=== PATIENT | male | born 1960 | race Caucasian/White ===

== ENCOUNTER 2020-08-27 15:17 | Inpatient (IN) | payer MEDICARE, SELFPAY ==
[2020-08-27] VITALS (57 sets, daily range): BP systolic 73–171; BP diastolic 52–110; PULSE 56–99; RESP 10–42; TEMP 35.4–37.3; O2SAT 94–100
--- NOTE | ~2020-08-27 | CT_ITS ---
EXAMINATION: CT brain wo con DATE: 08/30/2020 02:44 INDICATION: Anoxic brain injury. TECHNIQUE: Computed tomography (CT) of the head was performed without intravenous contrast. The mA wa s adjusted according to patient size. Iterative reconstruction technique was employed. The dose-lengt h product was 681.00 mGy-cm. COMPARISON: Head CT 08/27/2020 FINDINGS: There is an old infarct in left cerebellum. There is an old infarct in right parietal lobe. There is diffuse hypoattenuation of the isabel matter. There is no intracranial hemorrhage or abnormal mass lesion. The ventricles are normal in size. There is mild mucosal thickening in the paranasal si nuses. There are likely changes of left ocular lens replacement surgery. The mastoid air cells are n ormal. IMPRESSION: 1. Diffuse hypoattenuation of the isabel matter, consistent with infarct. 2. 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 Reviewed, dictated and finalized at location A. DYER
--- NOTE | ~2020-08-27 | XR_ITS ---
XR abdomen NG/feed tube rechec INDICATION: Evaluate NG tube position. TECHNIQUE: Limited KUB perform for evaluating NG tube . COMPARISON: 08/27/2020 FINDINGS: NG tube tip in the distal esophagus near the GE junction. Visualized bowel gas pattern is u nremarkable. IMPRESSION: 1: NG tube tip in the distal esophagus near the GE junction. Recommend advancement. Reviewed, dictated and finalized at location B. EEPER IMPRESSION: 1: NG tube tip in the distal esophagus near the GE junction. Recommend advance ment.
--- NOTE | ~2020-08-27 | CT_ITS ---
EXAMINATION: CT brain wo con DATE: 08/27/2020 18:28 INDICATION: Postcardiac arrest. TECHNIQUE: Computed tomography (CT) of the head was performed without intravenous contrast. Sagittal and coronal reconstructions were performed. The mA was adjusted according to patient size. Iterative reconstruction technique was employed. The dose-length product was 605.33 mGy-cm. COMPARISON: None FINDINGS: Small region of encephalomalacia in the right parietal lobe consistent with old infarct. Additional s mall old infarct in the left cerebellar hemisphere. No acute intracranial hemorrhage, acute infarctio n or abnormal extra axial fluid collection. There is mild to moderate scattered white matter hypoatte nuation consistent with chronic small vessel ischemic disease. Ventricles are normal and symmetric. No mass/mass effect. Changes of bilateral intraocular lens replacement. Mucosal thickening in the vis ualized paranasal sinuses. Mastoid air cells and middle ear cavities are clear. Endotracheal tube and nasogastric tube are seen on the government services professional topogram. The nasogastric tube coils in the oral cavity befor e extending inferiorly into the pharynx. Intracranial calcified cerebral atherosclerosis is noted. IMPRESSION: 1. Old infarcts in the left cerebellar hemisphere and right parietal lobe. No acute intracranial proc ess. 2. Mild to moderate scattered white matter hypoattenuation consistent with chronic small vessel ische brianna disease. 3. A portion of the nasogastric tube coils in the oral cavity before extending caudally into the phar ynx and beyond the caudal margin of the [id number]. Reviewed, dictated and finalized at location A. WASHER GLUER IMPRESSION: 1. Old infarcts in the left cerebellar hemisphere and right parietal lobe. No a cute intracranial process. 2. Mild to moderate scattered white matter hypoattenuation consistent with aoc director combat plans officer suzette small vessel ischemic disease. 3. A portion of the nasogastric tube coils in the oral cavity before extending caudally into the pharynx and beyond the caudal margin of the [id number].
--- NOTE | ~2020-08-27 | XR_ITS ---
XR chest 1V portable DATE: 08/31/2020 06:10 INDICATION: Respiratory failure TECHNIQUE: Portable AP chest on August 31, 2020 at 0518 hours COMPARISON: August 30 2020 portable AP chest at 0504 hours FINDINGS: ET tube is 6.3 cm above omar; ideal range is 2-5 cm. NG tube in stomach. Right internal jugular central venous catheter tip overlying the superior vena cava. No pneumothorax. Cardiac megaly. Extensive thoracic aortic calcification. Status post sternotomy and probable coronary bypass graft surgery. Coronary artery stenting. There is infiltrate and/atelectasis in the left lower lobe. There is mild pulmonary vascular congesti on and redistribution and diffuse pulmonary interstitial prominence as well as mild prominence of the minor fissure, suggesting pulmonary interstitial and subpleural mild edema. No pleural effusion or p neumothorax is evident. Diffuse osteopenia. [place] devices overlie the right glenoid process of the scapula IMPRESSION: Cardiomegaly, mild congestive changes, probable pulmonary interstitial and subpleural adeola ma, relatively stable since August 30, 2020 Left lower lobe infiltrate and/atelectasis Reviewed, dictated and finalized at location A. ROOM GROWER IMPRESSION: Cardiomegaly, mild congestive changes, probable pulmonary interstit ial and subpleural edema, relatively stable since August 30, 2020 Left lower lobe infiltrate and/atelectasis
--- NOTE | ~2020-08-27 | XR_ITS ---
XR chest 1V portable DATE: 09/01/2020 06:21 INDICATION: Respiratory failure TECHNIQUE: Portable AP chest on September 01, 2020 at 0512 hours COMPARISON: August 31, 2020 portable AP chest at 0518 hours FINDINGS: ET tube tip 5.7 cm above omar. An NG tube is noted passing into the stomach. Right dental internship al jugular central venous catheter overlies superior vena cava. No pneumothorax. Cardiomegaly. Aortic calcification, ectasia. Mild was minor fissure suggesting subpleural edema. Pulm onary vascular redistribution may indicate mild pulmonary venous hypertension. No pleural effusion or pneumothorax. Mild left lower lobe infiltrate or atelectasis. No pulmonary consolidation is evident otherwise. IMPRESSION: No significant change since August 31, 2020 Reviewed, dictated and finalized at location A. MAN
--- NOTE | ~2020-08-27 | XR_ITS ---
XR chest ET placement 08/27/2020 16:03 Indication: Endotracheal tube placement. Respiratory distress. Procedure: AP portable chest Comparison: 11/29/2015 Findings: Endotracheal tube above the thoracic inlet, 12.6 cm above the omar. Cardiomegaly. No foca l air space disease, pulmonary edema, pleural effusion or suspected pneumothorax. Status post median sternotomy for CABG. Impression: 1: No acute cardiopulmonary disease. 2: Endotracheal tube above the thoracic inlet, 12.6 cm above the omar. Recommend advancement. Reviewed, dictated and finalized at location B. EMENT SERVICES REPRESENTATIVE Impression: 1: No acute cardiopulmonary disease. 2: Endotracheal tube above the thoracic inlet, 12.6 cm above the omar. Recom mend advancement.
--- NOTE | ~2020-08-27 | XR_ITS ---
EXAMINATION: XR chest port-a-cath/central DATE: 08/27/2020 20:16 INDICATION: Central line placement TECHNIQUE: frontal view of the chest was obtained. COMPARISON: Chest radiograph dated 08/27/2020 at 3:51 PM FINDINGS: New right internal jugular central venous catheter with distal tip in the midsuperior vena cava. The endotracheal tube remains positioned within the cervical esophagus approximately 13 cm above the ariella na. Nasogastric tube extends below the left hemidiaphragm with distal tip collimated off the study. New bandlike opacity left lower lung zone and increased opacity medial right lower lung zone. No pulm onary edema, pleural effusion or pneumothorax. Cardiomegaly. Median sternotomy wires, ostial markers and mediastinal surgical clips consistent with prior coronary artery bypass grafting. Suture anchors likely for prior labral repair along the anterosuperior right glenoid. IMPRESSION: 1. Lines and tubes as detailed above. Would recommend advancement of the endotracheal tube by 10 cm. Findings were discussed with Danielle Lozano, the nurse caring for the patient, at 8:30 PM. 2. New opacities in the bilateral lower lung zones which could represent atelectasis or less likely p neumonia. 3. Cardiomegaly. Reviewed, dictated and finalized at location A. VISITS NURSE IMPRESSION: 1. Lines and tubes as detailed above. Would recommend advancement of the endotr acheal tube by 10 cm. Findings were discussed with Danielle Lozano, the nurse car ing for the patient, at 8:30 PM. 2. New opacities in the bilateral lower lung zones which could represent atelec tasis or less likely pneumonia. 3. Cardiomegaly.
--- NOTE | ~2020-08-27 | XR_ITS ---
EXAMINATION: XR chest 1V portable DATE: 08/29/2020 05:38 INDICATION: Respiratory failure. TECHNIQUE: A single frontal view of the chest was obtained. COMPARISON: Chest single view 08/27/2020 FINDINGS: A waffle-pattern blanket overlies the patient. There are airspace opacities in right lower lung zone left mid and lower lung zones. No pleural effusion or pneumothorax. Cardiomegaly is noted. Median sternotomy wires and mediastinal surgical clips are seen, likely from prior coronary artery by pass grafting. The endotracheal tube tip is 5.5 cm above the omar. A right internal jugular central venous catheter is seen with tip in the superior vena cava. IMPRESSION: 1. Slightly worsened airspace opacities in right lower lung zone and left mid and lower lung zones, c onsistent with atelectasis versus pneumonia. 2. Cardiomegaly. Reviewed, dictated and finalized at location A. IER IMPRESSION: 1. Slightly worsened airspace opacities in right lower lung zone and left mid a nd lower lung zones, consistent with atelectasis versus pneumonia. 2. Cardiomegaly.
--- NOTE | ~2020-08-27 | XR_ITS ---
EXAMINATION: XR chest 1V portable DATE: 08/30/2020 05:50 INDICATION: Respiratory failure. TECHNIQUE: A single frontal view of the chest was obtained. COMPARISON: Chest single view 08/29/2020 FINDINGS: There is mild atelectasis at left lung base. There is a diffuse interstitial pattern in the lungs, consistent with mild pulmonary edema. No pleural effusion or pneumothorax. Cardiomegaly is no alin. Median sternotomy wires and mediastinal surgical clips are seen, likely from prior coronary kitty ry bypass grafting. A right internal jugular central venous catheter is seen with tip in the superior vena cava. The endotracheal tube tip is 5.9 cm above the omar. The nasogastric tube tip is beyond the inferior margin of the radiograph, but at least to the stomach. There are suture anchors in right glenoid. IMPRESSION: 1. Mild pulmonary edema. 2. Mild atelectasis at left lung base. 3. Cardiomegaly. Reviewed, dictated and finalized at location A. EY DRIVER
--- NOTE | ~2020-08-27 | XR_ITS ---
XR abdomen NG/feed tube insert INDICATION: Evaluate position. TECHNIQUE: Limited KUB perform for evaluating NG tube . COMPARISON: FINDINGS: NG tube coiled in the oropharynx. Visualized bowel gas pattern is unremarkable.Endotracheal tube is identified. There are extensive arterial calcifications in the upper abdomen. IMPRESSION: 1: NG tube coiled in the oropharynx. Reviewed, dictated and finalized at location B. ET AIRCRAFT CONTROLLER
--- NOTE | ~2020-08-27 | XR_ITS ---
EXAMINATION: XR abdomen NG/feed tube rechec DATE: 08/27/2020 20:54 INDICATION: Nasogastric tube placement recheck. TECHNIQUE: A supine view of the abdomen and lower chest was obtained for evaluation of feeding tube placement. COMPARISON: 08/27/2020 at 4:05 PM FINDINGS: Nasogastric tube has been advanced with distal tip in proximal side port in the body of the stomach. No dilated loops of gas-filled bowel to suggest obstruction. Left renal artery stent. Opacities at th e bilateral lung bases which could represent atelectasis and/or pneumonia. Cardiomegaly with change o f prior coronary artery stenting and coronary artery bypass grafting. IMPRESSION: 1. Nasogastric tube in the stomach. Reviewed, dictated and finalized at location A. TRICAL MAINTENANCE TECHNICIAN
--- NOTE | ~2020-08-27 | XR_ITS ---
EXAMINATION: XR chest ET placement DATE: 08/27/2020 20:54 INDICATION: Endotracheal tube repositioning. TECHNIQUE: frontal view of the chest was obtained. COMPARISON: Chest radiograph dated 08/27/2020 at 8:15 PM FINDINGS: Endotracheal tube has been advanced with distal tip now 4.6 cm above the omar. Right internal jugul ar central venous catheter with distal tip at the midsuperior vena cava. Nasogastric tube extends be low the left hemidiaphragm with distal tip collimated off the study. Improvement in bandlike opacity consistent with discoid atelectasis in the left lower lung zone. Pers istent airspace opacity in the right infrahilar region. No pleural effusion or pneumothorax. Cardiome kleber. Median sternotomy wires, ostial markers and mediastinal surgical clips consistent with prior co ronary artery bypass grafting. Change of prior right acetabular labral repair. Atherosclerotic thora cic aorta. IMPRESSION: 1. Lines and tubes in expected positions with endotracheal tube tip 4.6 cm above the omar. 2. Persistent consolidation in the right infrahilar region which could represent atelectasis and/or p neumonia. 3. Cardiomegaly. Reviewed, dictated and finalized at location A. MACHINE OFFBEARER IMPRESSION: 1. Lines and tubes in expected positions with endotracheal tube tip 4.6 cm abov e the omar. 2. Persistent consolidation in the right infrahilar region which could represen t atelectasis and/or pneumonia. 3. Cardiomegaly.
[2020-08-27] MEDS: SODIUM CHLORIDE 0.9% IV 1,000 ML 999 ML IV CONT ×2 (15:20→21:57)
--- NOTE | 2020-08-27 15:21 | ECG_ITS ---
Measurements Intervals [place] Rate: 87 P: -30 NC: 166 QRS: 122 QRSD: 210 T: 0 QT: 440 QTc: 530 Interpretive Statements ATRIAL FLUTTER/TACHYCARDIA RIGHT AXIS DEVIATION RIGHT BUNDLE BRANCH BLOCK ST-T WAVE ABNORMALITY IN ANTEROLATERAL LEADS- CONSIDER ISCHEMIA BASELINE WANDER- I, II, AVR, AVF, V1-V6 ABNORMAL ECG Electronically Signed On 08-28-2020 7:18:52 WEED SPRAYER by Steve Chowdhury D.O.
--- NOTE | 2020-08-27 15:22 | PC.NURSE ---
Having intermittent runs of vtach, pulses present.
[2020-08-27] MEDS: AMIODARONE 360 MG/D5W 200 ML 360 MG/200 ML BAG 33.33 MG IVPB ×2 (15:38→22:05)
--- NOTE | 2020-08-27 15:38 | PC.NURSE ---
Amiodarone drip started at 1 mg/min/ 33.3 ml/hr.
[2020-08-27 15:55] LABS: Basophils Percent Auto 0.4 % (0.2-1.2); Eosinophils Absolute Auto 0.2 K/mm3 (0-0.3); Eosinophils Percent Auto 2.2 % (0-4.4); Hematocrit 26.7 % (42.0-52.0); Immature Granulocyte Absolute 0.09 K/mm3 (0.00-0.031); Immature Granulocyte Percent A 1.2 % (0-0.5); Lymphocytes Absolute Auto 0.77 K/mm3 (0.9-3.2); Lymphocytes Percent Auto 10.5 % (18.3-44.2); Mean Corpuscular Hemoglobin 27.7 pg (26-34); Mean Corpuscular Volume 92.4 fl (80-100); Monocytes Absolute Auto 0.4 K/mm3 (0.1-0.6); Monocytes Percent Auto 5.9 % (2.6-8.5); Neutrophils Absolute Auto 5.9 K/mm3 (1.3-6.7); Neutrophils Percent Auto 79.8 % (45.5-73.1); Platelet Count Result 223 k/mm3 (150-375); Red Blood Count 2.89 M/mm3 (4.6-6.20); White Blood Count 7.3 K/mm3 (4.5-10.0)
--- NOTE | 2020-08-27 15:59 | PC.NURSE ---
Epinephrine drip started at 1mcg/ 15 ml/hr.
--- NOTE | 2020-08-27 16:01 | PC.NURSE ---
# 18 malay NG tube placed to right nare. Placement verified by auscultation and xray.
[2020-08-27 16:03] LABS: Add Urine Microscopic? YES; Appearance Urine Cloudy (Clear); Bacteria Urine Trace /hpf; Bilirubin Urine Negative (Negative); Blood Urine Negative (Negative); Color Urine Yellow (Yellow); Glucose Urine UA 2+ mg/dL (Negative); Ketones Urine Negative (Negative); Leukocyte Esterase Ur Negative LEU/UL (Negative); Mucus Urine Rare /lpf; Nitrate Urine Negative (Negative); Protein Urine 3+ mg/dL (Negative); Specific Grav Ur 1.011 (1.001-1.035); Squamous Epithelial Cell Urine Rare /hpf (Few); Urobilinogen Urine Negative mg/dL (<2.0); WBC Urine 0-3 /hpf
[2020-08-27 16:04] LABS: Alveolar/Arterial O2 Gradient 107.7 mmHg; Base Excess ABG -2.8 mEq/l (+/-2.0); Fractional Inspired Oxygen 100 %; HCO3 ABG 21.3 mEq/l (22.0-26.0); Oxygen Content ABG 15.2 %vol (16.0-22.0); Oxygen Saturation ABG 99.9 % (95.0-100.0); Oxyhemoglobin 98.4 % THb (90.0-100.0); PCO2 ABG 34.2 mmHg (35.0-45.0); PO2 ABG 571.1 mmHg (80.0-100.0); PO2 FiO2 Ratio Arterial Blood 5.71 %; Total Hemoglobin 9.8 g/dL (12.0-18.0); pH ABG 7.412 (7.350-7.450)
[2020-08-27 16:05] LABS: Arterial Blood Gas PEEP 5 cmH2O; Arterial Blood Gas Tidal Volume 350 ml; Arterial Blood Gas Vent Mode ASSIST CONTROL; Arterial Blood Gas Ventilator rate 15 /MIN; Device VENTILATOR; Modified Allen's Test Pass; Site Drawn RIGHT RADIAL
[2020-08-27 16:09] LABS: INR 1.5; Prothrombin Time 18.6 Seconds (11.1-14.7)
[2020-08-27 16:10] LABS: Partial Thromboplastin Time 41.5 SECONDS (22.3-36.8)
[2020-08-27 16:11] LABS: Alanine Aminotransferase 25 U/L (4-50); Albumin Level 2.4 g/dL (3.5-5.1); Alkaline Phosphatase 41 U/L (38-126); Anion Gap 12 mmol/L (8-16); Aspartate Amino Transferase 46 U/L (17-59); Bilirubin,Total 0.4 mg/dL (0.2-1.3); Blood Urea Nitrogen 13 mg/dL (9-20); Carbon Dioxide 21 mmol/L (22-30); Chloride 108 mmol/L (98-107); Estimated Glomerular Filt Rate 20; Glucose 176 mg/dL (75-110); Lactic Acid Reflex 6.4 mmol/L (0.7-2.1); Magnesium 2.6 mg/dL (1.6-2.3); Sodium 141 mmol/L (137-145)
[2020-08-27 16:18] LABS: Potassium 2.8 mmol/L (3.4-5.0)
[2020-08-27] MEDS: EPINEPHrine INJ 1 MG in DEXTROSE 5% IN WATER 250 ML 75.3 MG IV CONT (16:22)
[2020-08-27 16:28] LABS: NT Pro B Type Natriuretic Pept 33800 PG/ML (5-100); Troponin I 0.146 ng/mL (0.000-0.034)
[2020-08-27] MEDS: KCL 20 MEQ/SW 100 ML 100 ML 50 MEQ IVPB (16:30)
--- NOTE | 2020-08-27 16:54 | PC.NURSE ---
Diprivan drip started at 20 mcg. Pt having twitching movements and coughing against ETT.
--- NOTE | 2020-08-27 17:00 | PM.IMHP ---
H&P: HPI History of Present Illness Date/Time: 08/27/20 17:00. The patient was seen and evaluated in the emergency department. Chief Complaint: Cardiac arrest. Narrative: This is a 59-year-old male with end-stage renal disease on hemodialysis, coronary artery disease, hypertension, COPD, and chronic respiratory failure who presented to the emergency department earlier today via EMS in cardiac arrest. A majority of the following history is obtained via a review of his electronic medical records. His is present hospital owns a bedside however she is not a good historian as he does not really talk to her about his medical problems and they have not been for very long. Over the last week or so he has been telling his that his ?lungs hurt? after dialysis however he refused to have that evaluated. Apparently he has also had a cough although that is not unusual for him, as well as chills, nausea, occasional vomiting, and some loose stools. In any event he was at dialysis today and on his way back to his rehab facility (he was hospitalized at [facility] within the last couple of weeks for unknown reasons) he became unresponsive in the [facility]. On EMS arrival he was unresponsive, not breathing, and in ventricular fibrillation. CPR was initiated and he was shocked and found to be in asystole. After several rounds of CPR he had return of spontaneous circulation. He subsequently went back into ventricular fibrillation on several occasions in the emergency department but has since stabilized on amiodarone. EKG demonstrates a wide complex QRS with a prolonged QTC at 530. He remained unresponsive with no purposeful movement however has been started on propofol due to ongoing seizure activity. Review of Systems Review of Systems: Narrative: Unable to be obtained given current clinical condition as detailed above. [facility] Past Medical History Medical History (Updated 08/27/20 @ 23:18 by Tali Huffman PA-C) Asthma Bipolar disorder Chronic obstructive pulmonary disease Chronic respiratory failure Coronary artery disease End-stage renal disease on hemodialysis History of kidney stones Hyperlipidemia Hypertension Seizure Type 2 diabetes mellitus Documented in his chart however I do not see he is on any medication for such. Surgical History Surgical History (Updated 08/27/20 @ 23:10 by Tail Huffman PA-C) History of coronary artery bypass graft (~2010) History of hernia repair History of shoulder surgery Family History Family History Other Cerebrovascular accident Heart disease Social History Social History (Updated 08/27/20 @ 23:12 by Tali Huffman PA-C) Social History: Surrogate decision maker: Marion Bernard, . Code status: Full code Years smoked: 35 Smoking status: Former smoker Tobacco type: cigarettes Alcohol intake: former Substance use: never Additional living arrangements comments: Lives with his in [place]. He had 2 children, 1 son from suicide. Daughter is still living but I do not think they talk very much. Additional occupation/education comments: Unemployed. Spiritual care concerns: No Meds Home Medications and Allergies Home Medications Medication Instructions Recorded Confirmed Type albuterol sulfate 2 puff INHALATION Q4H PRN 08/27/20 08/27/20 History aspirin 81 mg PO DAILY 08/27/20 08/27/20 History carvedilol 25 mg PO DAILY 08/27/20 08/27/20 History clopidogrel 75 mg PO DAILY 08/27/20 08/27/20 History diphenhydramine HCl 12.5 mg PO HS PRN 08/27/20 08/27/20 History docusate sodium 100 mg PO BID PRN 08/27/20 08/27/20 History fluticasone furoate-vilanterol 1 inh INHALATION DAILY 08/27/20 08/27/20 History hydralazine 50 mg PO TID 08/27/20 08/27/20 History isosorbide mononitrate 60 mg PO DAILY 08/27/20 08/27/20 History losartan 50 mg PO DAILY 08/27/20 08/27/20 His
--- NOTE | 2020-08-27 17:05 | PC.NURSE ---
Diprivan increased to 30 mcg.
--- NOTE | 2020-08-27 17:32 | PC.NURSE ---
Diprivan drip started per ERP orders.
--- NOTE | 2020-08-27 17:46 | ED.GENADULT ---
HPI - General Adult General Chief complaint: Cardiac Arrest/CPR <Ben June MD - Last Filed: 08/27/20 20:57> Stated complaint: cardiac arrest <Ben June MD - Last Filed: 08/27/20 20:57> Limitations: altered mental status and clinical condition <Ben June MD - Last Filed: 08/27/20 20:57> History of Present Illness HPI narrative: Patient is 59-year-old gentleman who presents the emergency department with chief complaint of cardiac arrest. Patient was being transported [facility] dialysis [facility] and became unresponsive in the vehicle. EMS found the patient to be in ventricular tachycardia and ventricular fibrillation he was cardioverted in the field initially had a brief return of spontaneous circulation and then had return of cardiac arrest. Patient had several episodes of cardiac arrest and now <Ben June MD - Last Filed: 08/27/20 20:57> Related Data Home medications: Home Medications Medication Instructions Recorded Confirmed albuterol sulfate 2 puff INHALATION Q4H PRN 08/27/20 08/27/20 aspirin 81 mg PO DAILY 08/27/20 08/27/20 carvedilol 25 mg PO DAILY 08/27/20 08/27/20 clopidogrel 75 mg PO DAILY 08/27/20 08/27/20 hydralazine 50 mg PO TID 08/27/20 08/27/20 losartan 50 mg PO DAILY 08/27/20 08/27/20 nitroglycerin 0.4 mg SUBLINGUAL Q5M PRN 08/27/20 08/27/20 ranolazine 1,000 mg PO BID 08/27/20 08/27/20 sertraline 50 mg PO DAILY 08/27/20 08/27/20 <Ben June MD - Last Filed: 08/27/20 20:57> Allergies/adverse reactions: Allergies Allergy/AdvReac Type Severity Reaction Status Date / Time Unable to Assess Allergy Verified 08/27/20 17:01 <Ben June MD - Last Filed: 08/27/20 20:57> Review of Systems Review of Systems: Narrative: Unable to obtain due to altered mental status and patient condition <Ben June MD - Last Filed: 08/27/20 20:57> [facility] Social History Social History: Social History Years smoked: 35 Smoking status: Former smoker Tobacco type: cigarettes Alcohol intake: former Substance use: never Spiritual care concerns: No <Ben June MD - Last Filed: 08/27/20 20:57> Comments Patient has history of end-stage renal on dialysis history of cardiac disease. History is limited due to acuity <Ben June MD - Last Filed: 08/27/20 20:57> Exam Narrative: Exam Narrative: GENERAL: Ill-appearing unresponsive HEAD: Normocephalic, atraumatic. EYES: Left pupil is 5 mm and unreactive right pupil is 5 mm with a cataract present. ENT: Nares clear, no rhinorrhea or epistaxis. Mucous membranes moist. NECK: Supple. CHEST: Clear to auscultation. No respiratory distress. HEART: Regular rate and rhythm. No murmur heard. Normal peripheral pulses. ABDOMEN: Soft, nontender, nondistended, normal active bowel sounds. EXTREMITIES: Normal range of motion. No edema. SKIN: Warm, dry, no rash. NEURO: Unresponsive PSYCH: Unresponsive <Ben June MD - Last Filed: 08/27/20 20:57> Course Vital Signs Vital signs: Vital Signs Pulse Rate 88 08/27/20 15:21 Pulse Rate 89 08/27/20 20:21 Respiratory Rate 32 H 08/27/20 20:21 Blood Pressure 120/87 08/27/20 20:21 Pulse Oximetry 99 08/27/20 20:21 <Ben June MD - Last Filed: 08/27/20 20:57> Vital Signs Pulse Rate 88 08/27/20 15:21 Pulse Rate 89 08/27/20 20:21 Respiratory Rate 32 H 08/27/20 20:21 Blood Pressure 120/87 08/27/20 20:21 Pulse Oximetry 99 08/27/20 20:21 <Peri Alejandro MD - Last Filed: 08/27/20 20:11> Procedures Central Line Placement Right IJ: Central Line Date: 08/27/20 <Peri Alejandro MD - Last Filed: 08/27/20 20:11> Central Line Time: 20:05 <Peri Alejandro MD - Last Filed: 08/27/20 20:11> Performed Emergently - Given emergent patient condition, te
--- NOTE | 2020-08-27 18:09 | PC.NURSE ---
Ativan 1mg given IVP for twitching. Suctioned with yankeur, no gag reflex noted.
[2020-08-27] MEDS: LORazepam INJ (*CRX) 2 MG/ML VIAL 1 MG IV PUSH (18:17)
--- NOTE | 2020-08-27 18:30 | PC.NURSE ---
Continues to having twitching movements.
[2020-08-27 18:52] LABS: Reflex Lactic Acid Yes or No Add Lactic
--- NOTE | 2020-08-27 19:26 | PC.NURSE ---
Per GARFIELD June, discontinue epi drip.
--- NOTE | 2020-08-27 19:42 | PC.NURSE ---
Addendum entered by Rip Crook RN 08/27/20 21:16: Propofol started at 20mcg. Original Note: Per EDP Lipsmeyer via verbal order read-back, continue Propofol drip.
--- NOTE | 2020-08-27 19:50 | PC.NURSE ---
EDP Javon and Slade in room attempting central line placement. Patient moving during placement. Per EDP Javon via verbal order read-back, give 100mg succinylcholine IVP.
--- NOTE | 2020-08-27 20:40 | PC.NURSE ---
EDP Lipsyer in room for re-intubation. Unable to obtain seal on ETT tube, new ETT placed. size 7.5, 25 at the teeth, symmetrical chest rise and fall, good end tidal CO2 color change. Breath sounds equal bilaterally.
[2020-08-27] MEDS: EPINEPHrine INJ 1 MG in DEXTROSE 5% IN WATER 250 ML 15 MG IV CONT (20:46)
--- NOTE | 2020-08-27 20:47 | PC.NURSE ---
Per GARFIELD June, restart epi drip at 15mls/hr.
[2020-08-27 21:33] LABS: Hematocrit 30.2 % (42.0-52.0); Hemoglobin 9.3 g/dL (14.0-18.0); Mean Corpuscular HGB Conc 30.8 g/dl (32-36); Mean Corpuscular Hemoglobin 27.6 pg (26-34); Mean Corpuscular Volume 89.6 fl (80-100); Mean Platelet Volume 9.6 fl (7.4-10.4); Platelet Count Result 327 k/mm3 (150-375); Red Blood Count 3.37 M/mm3 (4.6-6.20); Red Cell Distribution Width 16.5 % (11.5-14.5); White Blood Count 17.8 K/mm3 (4.5-10.0)
[2020-08-27 21:43] LABS: INR 1.4; Prothrombin Time 17.8 Seconds (11.1-14.7)
[2020-08-27 21:44] LABS: Partial Thromboplastin Time 41.2 SECONDS (22.3-36.8)
[2020-08-27 21:51] LABS: Anion Gap 12 mmol/L (8-16); Blood Urea Nitrogen 27 mg/dL (9-20); Calcium 9.9 mg/dL (8.4-10.2); Carbon Dioxide 25 mmol/L (22-30); Chloride 100 mmol/L (98-107); Creatine Kinase 346 U/L (55-170); Estimated CRCL calculation 14 ml/min; Estimated Glomerular Filt Rate 11; Glucose 124 mg/dL (75-110); Magnesium 2.7 mg/dL (1.6-2.3); Potassium 6.6 mmol/L (3.4-5.0); Sodium 137 mmol/L (137-145)
[2020-08-27 21:58] LABS: Alveolar/Arterial O2 Gradient 411.5 mmHg; Base Excess ABG 1.3 mEq/l (+/-2.0); Carboxyhemoglobin 0.2 % THb (0-2.0); Fractional Inspired Oxygen 100 %; HCO3 ABG 25.1 mEq/l (22.0-26.0); Methemoglobin ABG 0.3 %THb (0-1.5); Oxygen Content ABG 14.9 %vol (16.0-22.0); Oxygen Saturation ABG 99.6 % (95.0-100.0); Oxyhemoglobin 98.6 % THb (90.0-100.0); PCO2 ABG 36.3 mmHg (35.0-45.0); PO2 ABG 253.3 mmHg (80.0-100.0); PO2 FiO2 Ratio Arterial Blood 2.53 %; Reduced Hemoglobin 0.9 %THb (0-5.0); Total Hemoglobin 10.3 g/dL (12.0-18.0); pH ABG 7.457 (7.350-7.450)
[2020-08-27 21:59] LABS: Arterial Blood Gas PEEP 5 cmH2O; Arterial Blood Gas Tidal Volume 350 ml; Arterial Blood Gas Vent Mode CMV; Arterial Blood Gas Ventilator rate 15 /MIN; Device VENTILATOR; Modified Allen's Test Unable to perform; Site Drawn RIGHT RADIAL
--- NOTE | 2020-08-27 22:02 | ECG_ITS ---
Measurements Intervals [place] Rate: 48 P: VA: 0 QRS: 103 QRSD: 204 T: 177 QT: 607 QTc: 545 Interpretive Statements SINUS RHYTHM WUTH FIRST DEGREE AV BLOCK VENTRICULAR PREMATURE COMPLEX RIGHT AXIS DEVIATION RIGHT BUNDLE BRANCH BLOCK PROLONGED QT INTERVAL BASELINE ARTIFACT- I, II, III, AVR, AVL, AVF, V1-V6 ABNORMAL ECG Electronically Signed On 08-28-2020 7:14:55 SENIOR ENERGY TRADER by Steve Chowdhury D.O.
[2020-08-27] MEDS: EPINEPHrine INJ 1 MG in DEXTROSE 5% IN WATER 250 ML 15.06 MG IV CONT (22:12)
[2020-08-27] MEDS: NOREPINEPHRINE 8 MG/D5W 250 ML 8 MG/250 ML BAG 9.38 MG IV CONT (22:13)
[2020-08-27 22:19] LABS: Glucose Point of Care 92 (65-105)
[2020-08-27] MEDS: PROPOFOL IV EMULSION 100 ML 2.12 MG IV CONT (22:46)
[2020-08-27] MEDS: SODIUM POLYSTYRENE SULFONONATE 15 GM/60 ML BTL 30 GM FEED TUBE (22:46)
[2020-08-27] MEDS: INSULIN HUMAN REGULAR (*BKC) 100 UNITS/ML 10 UNITS IV PUSH (23:05)
[2020-08-27] MEDS: levETIRAcetam 500MG/NACL 100ML 500 MG/100 ML BAG 400 MG IVPB (23:07)
[2020-08-27] MEDS: DEXTROSE 50% 25 GM/50 ML SYRINGE IV PUSH (23:14)
[2020-08-27] MEDS: CALCIUM GLUCONATE 1,000 MG/10 ML VIAL 1000 MG IV PUSH (23:15)
[2020-08-27] MEDS: SODIUM CHLORIDE 0.9% IV 1,000 ML 200 ML IV CONT (23:16)
[2020-08-27] MEDS: CENTRAL LINE FLUSH 10 ML IV PUSH (23:17)
--- NOTE | 2020-08-27 23:34 | PCRCNOTE ---
ETT EXCHANGED DUE TO AIR LEAK AND LOW TIDAL VOLUMES. REPLACED WITH 7.5 ETT, 25@LIP. PT THEN TRANSPORTED TO ICU 3 FROM ED 8 VIA VENTILATOR WITH NO ADVERSE EVENTS NOTED.
[2020-08-28] VITALS (47 sets, daily range): BP systolic 99–175; BP diastolic 53–99; PULSE 42–63; RESP 15–29; TEMP 32.2–35.8; O2SAT 100; BMI 23.6
[2020-08-28] LABS: Glucose Point of Care 235 (65-105)
[2020-08-28] MEDS: INSULIN ASPART (*BKC) 100 UNITS/ML SUB-Q
--- NOTE | 2020-08-28 | ECHO_ITS ---
Patient Info Name: Adin Bernard Age: 59 years : 1960 Gender: Male Ht: 69 in Wt: 160 lbs BSA: 1.88 m2 HR: 50 bpm BP: 150 / 84 mmHg Heart Rhythm: Bradycardia, Indeterminant Technical Quality: Good Exam Date: 08/28/2020 10:01 AM Exam Location: [facility] Patient Status: Inpatient Admit Date: 08/27/2020 Staff Ordering Physician: Ben June MD Knitter Operator: Dar Adams RDCS Attending Provider: Fabian Booth MD Referring Physician: Slade CARBAJAL; Exam Type: CA echo doppler color flow Study Info Indications I46.9 - Cardiac arrest, cause unspecified Complete two-dimensional, color flow and Doppler transthoracic echocardiogram is performed. Strain analysis performed. History/Risk Factors Vfib arrest; ARF, ESRD, CAD w/ CABG, HTN, COPD. Summary 1. Complete two-dimensional, color flow and Doppler transthoracic echocardiogram is performed. 2. The left ventricle is mildly enlarged with moderate concentric hypertrophy. There is severe global left ventricular dysfunction, with also akinesis of the mid inferior septal and inferolateral correa. The calculated ejection fraction is 30 3% and visually it is 25-30%. Diastolic function is indeterminate. Global longitudinal strain is also severely reduced at 7% consistent with severe left ventricular dysfunction. 3. Right ventricular chamber dimension is mildly enlarged with mild hypokinesis. 4. Left atrial chamber dimension is moderately enlarged. 5. There is mild aortic valve calcification. There is a suggestion of short thin fibrinous mobile masses associated with the valve which gives the appearance of benign Lambl's excrescences, although vegetations and artifact cannot be excluded. 6. There is mild mitral valve regurgitation. 7. There is mild tricuspid valve regurgitation. 8. Mild pulmonary hypertension, estimated pulmonary arterial systolic pressure is 40 mmHg. 9. Mildly dilated aortic root. Left Ventricle Left ventricular chamber dimension is mildly enlarged. Left ventricular systolic function is normal, estimated at 25-30%. There is moderately increased left ventricular wall thickness. Left ventricular septal wall motion is normal. The left ventricular diastolic function is indeterminate. Global longitudinal strain is severely elevated at 7 %. The left ventricle is mildly enlarged with moderate concentric hypertrophy. There is severe global left ventricular dysfunction, with also akinesis of the mid inferior septal and inferolateral correa. The calculated ejection fraction is 30 3% and visually it is 25-30%. Diastolic function is indeterminate. Global longitudinal strain is also severely reduced at 7% consistent with severe left ventricular dysfunction. Right Ventricle Right ventricular chamber dimension is mildly enlarged with mild hypokinesis. Right ventricular systolic function is normal. Left Atria Left atrial chamber dimension is moderately enlarged. Right Atria Right atrial chamber dimension is normal. Aortic Valve The aortic valve is trileaflet. There is no aortic valve sclerosis. There is no aortic valve stenosis. There is no aortic valve regurgitation. There is mild aortic valve calcification. There is a suggestion of short thin fibrinous mobile masses associated with the valve which gives the appearance of benign Lambl's excrescences, although vegetations and artifact cannot be excluded. Pulmonic Valve The pulmonic valve is normal. There is no pulmonic valve stenosis. There is
[2020-08-28 01:37] LABS: Alveolar/Arterial O2 Gradient 250.5 mmHg; Base Excess ABG -0.8 mEq/l (+/-2.0); Carboxyhemoglobin 0.2 % THb (0-2.0); Device VENTILATOR; Fractional Inspired Oxygen 60 %; HCO3 ABG 24.6 mEq/l (22.0-26.0); Methemoglobin ABG 0.3 %THb (0-1.5); Modified Allen's Test Unable to perform; Oxyhemoglobin 97.7 % THb (90.0-100.0); PCO2 ABG 43.6 mmHg (35.0-45.0); PO2 ABG 158.6 mmHg (80.0-100.0); PO2 FiO2 Ratio Arterial Blood 2.64 %; Reduced Hemoglobin 1.8 %THb (0-5.0); Site Drawn RIGHT RADIAL; Total Hemoglobin 9.2 g/dL (12.0-18.0); pH ABG 7.369 (7.350-7.450)
[2020-08-28 01:38] LABS: Arterial Blood Gas PEEP 5 cmH2O; Arterial Blood Gas Tidal Volume 350 ml; Arterial Blood Gas Vent Mode CMV; Arterial Blood Gas Ventilator rate 15 /MIN
[2020-08-28 02:43] LABS: Creatine Kinase 468 U/L (55-170)
[2020-08-28 02:46] LABS: Lactic Acid Reflex 5.1 mmol/L (0.7-2.1)
[2020-08-28] MEDS: SODIUM CHLORIDE 0.9% IV 1,000 ML 200 ML IV CONT (05:00)
[2020-08-28 05:06] LABS: Alanine Aminotransferase 273 U/L (4-50); Albumin Level 2.9 g/dL (3.5-5.1); Alkaline Phosphatase 94 U/L (38-126); Anion Gap 6 mmol/L (8-16); Aspartate Amino Transferase 469 U/L (17-59); Bilirubin,Total 0.8 mg/dL (0.2-1.3); Blood Urea Nitrogen 33 mg/dL (9-20); CRP 3.9 mg/dL (<1.0); Calcium 9.7 mg/dL (8.4-10.2); Carbon Dioxide 30 mmol/L (22-30); Chloride 104 mmol/L (98-107); Estimated CRCL calculation 14 ml/min; Estimated Glomerular Filt Rate 12; Glucose 86 mg/dL (75-110); Magnesium 2.6 mg/dL (1.6-2.3); Phosphorus 5.4 mg/dL (2.5-4.5); Potassium 3.9 mmol/L (3.4-5.0); Sodium 140 mmol/L (137-145)
[2020-08-28 05:19] LABS: Alveolar/Arterial O2 Gradient 160.9 mmHg; Carboxyhemoglobin 0.5 % THb (0-2.0); Fractional Inspired Oxygen 50 %; HCO3 ABG 26.7 mEq/l (22.0-26.0); Methemoglobin ABG 0.3 %THb (0-1.5); Oxygen Content ABG 12.7 %vol (16.0-22.0); Oxygen Saturation ABG 99.3 % (95.0-100.0); Oxyhemoglobin 97.7 % THb (90.0-100.0); PCO2 ABG 42.5 mmHg (35.0-45.0); PO2 ABG 181.3 mmHg (80.0-100.0); PO2 FiO2 Ratio Arterial Blood 3.63 %; Reduced Hemoglobin 1.5 %THb (0-5.0); Total Hemoglobin 8.9 g/dL (12.0-18.0); pH ABG 7.416 (7.350-7.450)
[2020-08-28 05:27] LABS: Device VENTILATOR; Modified Allen's Test Unable to perform; Site Drawn RIGHT RADIAL
[2020-08-28 05:28] LABS: Arterial Blood Gas PEEP 5 cmH2O; Arterial Blood Gas Tidal Volume 350 ml; Arterial Blood Gas Vent Mode CMV; Arterial Blood Gas Ventilator rate 15 /MIN
[2020-08-28 06:14] LABS: Amphetamine Screen Urine Negative (Negative); Barbiturate Screen Urine Negative (Negative); Benzodiazepines Screen Urine Negative (Negative); Cannabinoid Screen Urine Negative (Negative); Cocaine Screen Urine Negative (Negative); Methadone Screen Urine Negative (Negative); Opiate Screen Urine Negative (Negative); Phencyclidine Screen Urine Negative (Negative)
[2020-08-28] MEDS: CENTRAL LINE FLUSH 10 ML IV PUSH ×3 (06:16→21:59)
[2020-08-28 07:05] LABS: Hematocrit 26.6 % (42.0-52.0); Hemoglobin 8.3 g/dL (14.0-18.0); Mean Corpuscular HGB Conc 31.2 g/dl (32-36); Mean Corpuscular Hemoglobin 27.6 pg (26-34); Mean Corpuscular Volume 88.4 fl (80-100); Mean Platelet Volume 9.8 fl (7.4-10.4); Platelet Count Result 159 k/mm3 (150-375); Red Blood Count 3.01 M/mm3 (4.6-6.20); Red Cell Distribution Width 16.2 % (11.5-14.5)
[2020-08-28 07:10] LABS: Creatine Kinase 461 U/L (55-170); Lactic Acid Reflex 1.9 mmol/L (0.7-2.1)
[2020-08-28 07:49] LABS: INR 1.6; Prothrombin Time 19.7 Seconds (11.1-14.7)
[2020-08-28 07:50] LABS: Partial Thromboplastin Time 41.8 SECONDS (22.3-36.8)
[2020-08-28 08:10] LABS: Ferritin > 2000.00 ng/mL (11.1-264)
--- NOTE | 2020-08-28 08:44 | WPDCNINT ---
Assessment and Plan Assessment and plan (1) Cardiac arrest: Code(s): I46.9 - Cardiac arrest, cause unspecified Status: Acute Assessment and Plan: Patient was in ventricular fibrillation on EMS arrival, status post cardioversion. He has been started on amiodarone drip and an echocardiogram has been ordered for a.m.. Email Production Consultant consult Amiodarone was started on presentation but later discontinued due to significant sinus bradycardia in 40s (2) Acute respiratory failure: Code(s): J96.00 - Acute respiratory failure, unspecified whether with hypoxia or hypercapnia Status: Acute Assessment and Plan: Acute Respiratory failure secondary to cardiac arrest Continue full mechanical ventilation support to prevent hypoxemia/hypercarbia and end organ damage. ABG and PCXR reviewed and will repeat in am. Decrease FiO2 to 40% Low tidal volume ventilation strategy to prevent volutrauma Bronchodilators (3) Shock: Code(s): R57.9 - Shock, unspecified Status: Acute Assessment and Plan: Cardiogenic versus septic shock. He was on epinephrine and norepinephrine. But now weaned off Continue empiric antibiotics. Blood and sputum cultures pending. (4) Lactic acidosis: Code(s): E87.2 - Acidosis Status: Acute Assessment and Plan: Secondary to arrest with hypoperfusion and hypoxia. Empiric Zosyn for aspiration pneumonia Blood cultures pending. (5) Non-STEMI (non-ST elevated myocardial infarction): Code(s): I21.4 - Non-ST elevation (NSTEMI) myocardial infarction Status: Acute Assessment and Plan: Elevation in troponin likely secondary to cardiac arrest No ST elevation on EKG Resume aspirin and Plavix Echo ordered Cardiology consultation (6) End-stage renal disease on hemodialysis: Code(s): N18.6 - End stage renal disease; Z99.2 - Dependence on renal dialysis Status: Acute Assessment and Plan: Will consult nephrology when due for dialysis. Patient was dialyzed yesterday (7) Seizure: Code(s): R56.9 - Unspecified convulsions Status: Acute Assessment and Plan: Seizure versus myoclonic jerking Propofol Keppra Will obtain EEG once patient is reformed (8) Chronic obstructive pulmonary disease: Code(s): J44.9 - Chronic obstructive pulmonary disease, unspecified Status: Acute Assessment and Plan: Bronchodilators (9) Coronary artery disease: Code(s): I25.10 - Atherosclerotic heart disease of [place] coronary artery without angina pectoris Status: Acute Assessment and Plan: With history of CABG. Details unknown Cardiology consult Resume aspirin and Plavix Echocardiogram ordered (10) Anoxic brain injury: Code(s): G93.1 - Anoxic brain damage, not elsewhere classified Status: Acute Assessment and Plan: Head CT showed old CVAs Currently on TTM protocol which will continue till 1:00 a.m. Currently sedated with propofol Will reassess once rewarming (11) Hyperkalemia: Code(s): E87.5 - Hyperkalemia Status: Acute Assessment and Plan: Patient was hypokalemic on presentation and received potassium supplementation Post BMP showed elevated K which was treated with insulin D50 and Kayexalate K has now normalized Additional Plan DVT prophylaxis -PPI Stress ulcer prophylaxis -subcu [facility] Nutrition -NPO Code Status - Full Code Patient's daughter was notified this morning she lives in [place] and she states that she will be the 1 making decision as patient's does not want to take the responsibility. She will be driving to [place] see patient as soon as possible Total Critical Care Time - 40 minutes Due to a high probability of clinically significant, life threatening deterioration, the patient required my highest level of preparedness to intervene emergently and I personally spent this critical care time directly and personally marah
[2020-08-28] MEDS: levETIRAcetam 500MG/NACL 100ML 500 MG/100 ML BAG 400 MG IVPB ×2 (08:48→20:02)
[2020-08-28] MEDS: PANTOPRAZOLE SODIUM IV 40 MG VIAL IV PUSH ×2 (08:48)
[2020-08-28] MEDS: PROPOFOL IV EMULSION 100 ML 8.48 MG IV CONT (10:46)
[2020-08-28] MEDS: HEPARIN SODIUM 5,000 UNITS/ML VIAL 5000 UNITS SUB-Q ×2 (11:19→20:03)
[2020-08-28] MEDS: CLOPIDOGREL BISULFATE 75 MG TABLET PO (11:19)
[2020-08-28] MEDS: ASPIRIN 325 MG TABLET PO (11:19)
[2020-08-28 11:52] LABS: Glucose Point of Care 90 (65-105)
--- NOTE | 2020-08-28 12:15 | ECG_ITS ---
Measurements Intervals [place] Rate: 44 P: 8 [place]: 203 QRS: 86 QRSD: 195 T: 171 QT: 585 QTc: 501 Interpretive Statements SINUS BRADYCARDIA ATRIAL PREMATURE COMPLEX RIGHT BUNDLE BRANCH BLOCK ST-T WAVE ABNORMALITY IN ANTEROLATERAL LEADS- CONSIDER ISCHEMIA BASELINE ARTIFACT- I, II, III, AVR, AVL, AVF ABNORMAL ECG Electronically Signed On 08-28-2020 12:26:38 HAND POLISHER by Steve Chowdhury D.O.
--- NOTE | 2020-08-28 12:30 | PM.CNNEP ---
Assessment and Plan Assessment and plan (1) End stage renal disease: Code(s): N18.6 - End stage renal disease Status: Chronic Assessment and Plan: HD tomorrow and continue T/T/S schedule follow electrolytes, volume status, and clearance (2) Cardiac arrest: Code(s): I46.9 - Cardiac arrest, cause unspecified Status: Acute Assessment and Plan: precipitating event/issue?? Cardiology following no further arrhythmias since admission follow telemetry (3) Acute respiratory failure: Code(s): J96.00 - Acute respiratory failure, unspecified whether with hypoxia or hypercapnia Status: Acute Assessment and Plan: secondary to cardiac arrest complicated by known history of COPD on ventilator support (4) Shock: Code(s): R57.9 - Shock, unspecified Status: Acute Assessment and Plan: initially on pressors but not currently stable hemodynamics noted follow cultures (5) Elevated troponin: Code(s): R77.8 - Other specified abnormalities of plasma proteins Status: Acute Assessment and Plan: more likely related to cardiac arrest rather than acute cardiac event (i.e. MD) Cardiology following (6) Lactic acidosis: Code(s): E87.2 - Acidosis Status: Acute Assessment and Plan: due to organ hypoperfusion from cardiac arrest follow trend Greater than 20 min was spent in detailed conversation with the nurses/physicians involved in her care, the acute dialysis nurses, and the dialysis nurses at his outpatient dialysis unit who provided some of the history as noted above. Will continue to follow. History of Present Illness Reason for Consult Consult date: 08/28/20 Reason for consult: end stage renal disease Chief Complaint Chief complaint: status post cardiac arrest History of Present Illness Narrative: All of the information I have obtained is from review of the electronic medical record, as well as discussion with the medical staff involved in his care includes the acute dialysis nurses and the nurses at his outpatient dialysis center as the patient is unable to provide any history given his current clinical status. The patient is a 59-year-old male with a past medical history as outlined below who presented to the [facility] ER yesterday in cardiac arrest via EMS. Apparently, over the last week if not longer, the patient has been stating that his lungs have been given him difficulty in terms of pain particularly after dialysis but he refused to seek any medical attention for this problem. Associated symptoms included cough as well as chills nausea vomiting and some loose stools. He was at dialysis on the day of admission and on his way back to his rehab facility following completion of his treatment when apparently became unresponsive in the transportation vehicle. EMS was called and it was noted that he was not breathing and apparently in ventricular fibrillation. ACLS protocol was initiated which included intubation and defibrillation followed by asystole with an eventual return of circulation after several rounds of CPR/medications. By the time of his arrival to the ER, he had multiple episodes of ventricular fibrillation with eventual stabilization with the use of IV amiodarone. There was some concern of possible seizure activity during these events and he was subsequently started on propofol for sedation. He was eventually transferred to the intensive care unit her ongoing therapy/evaluation. Renal consultation was requested due to his known end-stage renal disease. The patient normally dialyzes on a Wednesday, , Wednesday schedule at [facility] under the care of Dr. Longo. As already mentioned, he did receive a dialysis treatment yesterday but from my discussion with his outpatient dialysis unit, he only did about 2 - 2.5 hours of treatment before he signed off the machine jose
--- NOTE | 2020-08-28 12:59 | PM.CNCAR ---
Assessment and Plan Assessment and plan (1) Cardiac arrest: Code(s): I46.9 - Cardiac arrest, cause unspecified Status: Acute Assessment and Plan: Status post cardiac arrest secondary to ventricular fibrillation/sudden cardiac . Does not appear to be secondary to a STEMI and probably not directly to ischemia but sudden cardiac 2nd to his cardiomyopathy. Perhaps aggravated by the hypokalemia and QT prolongation. Arrhythmias have been improved overnight. Initially had shock but has been weaned off his pressors. Hemodynamically stable, not in CHF. Continue to monitor potassium. Agree with holding off on further amiodarone unless he has recurrent arrhythmias. Further cardiac evaluation depends on his neurologic recovery period (2) Ischemic cardiomyopathy: Code(s): I25.5 - Ischemic cardiomyopathy Status: Acute Assessment and Plan: History of ischemic cardiomyopathy, EF 25-30% when evaluated in June 2020. (3) Type 2 MA (myocardial infarction): Code(s): I21.A1 - Myocardial infarction type 2 Status: Acute Assessment and Plan: Significantly elevated troponins secondary to underlying CAD and multiple cardiac arrest yesterday. Will gradually resume his home losartan, carvedilol, etc as his BP permits. (4) Anoxic brain injury: Code(s): G93.1 - Anoxic brain damage, not elsewhere classified Status: Acute Assessment and Plan: Had been on a cooling protocol. No further seizures (5) QT prolongation: Code(s): R94.31 - Abnormal electrocardiogram [ECG] [EKG] Status: Acute Assessment and Plan: Has QT prolongation. The patient's Zofran and sertraline may be contributing as well as ranolazine. Avoid these medications and other QT prolonging medications if possible, unless amio is needed to control ventricular arrhythmias. (6) Coronary artery disease: Code(s): I25.10 - Atherosclerotic heart disease of [place] coronary artery without angina pectoris Status: Acute Assessment and Plan: Had a circumflex stent in December 2019. Continue dual anti-platelet therapy. History of Present Illness History of Present Illness Consult date/time: 08/28/20 12:59 Consult reason: Other Reason For Visit: status post cardiac arrest Narrative: 08/28/2020 Adin Bernard is a 59 y.o. male w/ ESRD on dialysis Whom I was asked to see at the request of the hospitalist for my advice and opinion regarding his VFib arrest and cardiac problems, in consultation. The patient left dialysis yesterday then collapsed in his medical transport vehicle. When EMS arrived he had been down for about 5 minutes, and he was found in ventricular fibrillation. RE was resuscitated and intubated by EMS, but had another V fib event in the ambulance and more in the ER. He is currently intubated and sedated w/ seizures. EKG did not show a STEMI. Troponins up to 12, K+ 2.8 on admission. Epinephrine and Levophed has been weaned off. Was on amiodarone but developed bradycardia. No further ventricular arrhythmias last night or today. Review of records in [facility] shows that pt was admitted to [facility] in July 2020. He is normally followed by Dr. Ana Smith at [facility]. He has a history of AFib, cardiac arrest, cardiomyopathy, CAD status post MA and CABG x4, , ventricular arrhythmias, and cardiac arrest, hypertension diabetes and end-stage renal disease. He was admitted with a typical chest pain, probably musculoskeletal, elevated troponins thought to be secondary to uncontrolled hypertension. Cardiac cath 12/2019 resulted in a stent to the CX. Cardiac catheterization in June 2020 as below; essentially he had a failed attempt to revascularize the right coronary kitty
[2020-08-28] MEDS: ALBUTEROL SULFATE NEB 2.5 MG/0.5 ML INH INHALATION ×2 (14:54→20:10)
[2020-08-28] MEDS: IPRATROPIUM BR 0.02% INH SOLN 0.5 MG/2.5 ML VIAL INHALATION ×2 (14:54→20:10)
[2020-08-28 15:13] LABS: Lactic Acid Reflex 1.3 mmol/L (0.7-2.1)
[2020-08-28 15:22] LABS: Creatine Kinase 379 U/L (55-170)
[2020-08-28 17:55] LABS: Glucose Point of Care 96 (65-105)
[2020-08-28 18:03] LABS: Anion Gap 7 mmol/L (8-16); Blood Urea Nitrogen 39 mg/dL (9-20); Calcium 9.8 mg/dL (8.4-10.2); Carbon Dioxide 30 mmol/L (22-30); Chloride 103 mmol/L (98-107); Estimated CRCL calculation 12 ml/min; Estimated Glomerular Filt Rate 10; Glucose 105 mg/dL (75-110); Magnesium 2.5 mg/dL (1.6-2.3); Phosphorus 6.1 mg/dL (2.5-4.5); Potassium 4.3 mmol/L (3.4-5.0); Sodium 140 mmol/L (137-145)
[2020-08-28 19:59] LABS: Hematocrit 27.6 % (42.0-52.0); Hemoglobin 8.7 g/dL (14.0-18.0); Mean Corpuscular HGB Conc 31.5 g/dl (32-36); Mean Corpuscular Hemoglobin 27.7 pg (26-34); Mean Corpuscular Volume 87.9 fl (80-100); Mean Platelet Volume 9.9 fl (7.4-10.4); Platelet Count Result 146 k/mm3 (150-375); Red Blood Count 3.14 M/mm3 (4.6-6.20); Red Cell Distribution Width 16.2 % (11.5-14.5); White Blood Count 12.7 K/mm3 (4.5-10.0)
[2020-08-28 20:08] LABS: INR 1.5; Prothrombin Time 18.8 Seconds (11.1-14.7)
[2020-08-28 20:09] LABS: Partial Thromboplastin Time 43.4 SECONDS (22.3-36.8)
[2020-08-28 20:10] LABS: Creatine Kinase 282 U/L (55-170); Lactic Acid Reflex 1.1 mmol/L (0.7-2.1)
[2020-08-28] MEDS: PROPOFOL IV EMULSION 100 ML 14.85 MG IV CONT (21:10)
[2020-08-28 23:19] LABS: Glucose Point of Care 104 (65-105)
[2020-08-29] VITALS (55 sets, daily range): BP systolic 80–182; BP diastolic 51–106; PULSE 56–113; RESP 15–27; TEMP 33.7–37.9; O2SAT 98–100
--- NOTE | 2020-08-29 00:59 | PC.NURSE ---
Patient rewarming initiated. Blanketrol warmer set to 34.3 degrees celsius, 0.3 degrees celsius above patient's current body temp (34 degrees celsius.)
[2020-08-29] MEDS: ALBUTEROL SULFATE NEB 2.5 MG/0.5 ML INH INHALATION ×3 (02:28→19:08)
[2020-08-29] MEDS: IPRATROPIUM BR 0.02% INH SOLN 0.5 MG/2.5 ML VIAL INHALATION ×3 (02:29→19:08)
[2020-08-29 02:34] LABS: Lactic Acid Reflex 1.2 mmol/L (0.7-2.1)
[2020-08-29 02:39] LABS: Anion Gap 7 mmol/L (8-16); Blood Urea Nitrogen 45 mg/dL (9-20); Calcium 9.8 mg/dL (8.4-10.2); Carbon Dioxide 30 mmol/L (22-30); Chloride 102 mmol/L (98-107); Estimated CRCL calculation 12 ml/min; Estimated Glomerular Filt Rate 9; Glucose 93 mg/dL (75-110); Magnesium 2.4 mg/dL (1.6-2.3); Phosphorus 7.3 mg/dL (2.5-4.5); Sodium 139 mmol/L (137-145)
[2020-08-29 02:49] LABS: Creatine Kinase 194 U/L (55-170); Potassium 4.4 mmol/L (3.4-5.0)
[2020-08-29] MEDS: PROPOFOL IV EMULSION 100 ML 10.61 MG IV CONT (03:50)
[2020-08-29 04:50] LABS: Alveolar/Arterial O2 Gradient 77.4 mmHg; Base Excess ABG 3.1 mEq/l (+/-2.0); Carboxyhemoglobin 0.5 % THb (0-2.0); Fractional Inspired Oxygen 30 %; HCO3 ABG 27.4 mEq/l (22.0-26.0); Methemoglobin ABG 0.3 %THb (0-1.5); Oxygen Content ABG 13.4 %vol (16.0-22.0); Oxygen Saturation ABG 97.8 % (95.0-100.0); Oxyhemoglobin 95.8 % THb (90.0-100.0); PCO2 ABG 40.8 mmHg (35.0-45.0); PO2 ABG 99.7 mmHg (80.0-100.0); PO2 FiO2 Ratio Arterial Blood 3.32 %; Reduced Hemoglobin 3.4 %THb (0-5.0); Total Hemoglobin 9.8 g/dL (12.0-18.0); pH ABG 7.445 (7.350-7.450)
[2020-08-29 04:56] LABS: Arterial Blood Gas PEEP 5 cmH2O; Arterial Blood Gas Tidal Volume 350 ml; Arterial Blood Gas Vent Mode CMV; Arterial Blood Gas Ventilator rate 15 /MIN; Device VENTILATOR; Site Drawn RIGHT BRACHIAL
[2020-08-29] MEDS: DEXTROSE 50% 25 GM/50 ML SYRINGE IV PUSH ×2 (06:02→11:56)
[2020-08-29] MEDS: CENTRAL LINE FLUSH 10 ML IV PUSH ×3 (06:04→19:46)
[2020-08-29] MEDS: levETIRAcetam 500MG/NACL 100ML 500 MG/100 ML BAG 400 MG IVPB ×2 (08:23→19:46)
[2020-08-29] MEDS: PANTOPRAZOLE SODIUM IV 40 MG VIAL IV PUSH (08:23)
[2020-08-29] MEDS: CLOPIDOGREL BISULFATE 75 MG TABLET PO (08:23)
[2020-08-29] MEDS: ASPIRIN 325 MG TABLET PO (08:23)
[2020-08-29] MEDS: HEPARIN SODIUM 5,000 UNITS/ML VIAL 5000 UNITS SUB-Q ×2 (08:25→19:45)
[2020-08-29 09:07] LABS: Glucose Point of Care 95 (65-105)
[2020-08-29 09:07] LABS: Glucose Point of Care 64 (65-105)
--- NOTE | 2020-08-29 09:53 | WPDINTPN ---
Progress Note: A&P Assessment and Plan (1) Cardiac arrest: Code(s): I46.9 - Cardiac arrest, cause unspecified Status: Acute Assessment and Plan: Patient was in ventricular fibrillation on EMS arrival, status post cardioversion. He has been started on amiodarone drip and an echocardiogram has been ordered for a.m.. Senior Qa Analyst consulted Amiodarone was started on presentation but later discontinued due to significant sinus bradycardia in 40s (2) Acute respiratory failure: Code(s): J96.00 - Acute respiratory failure, unspecified whether with hypoxia or hypercapnia Status: Acute Assessment and Plan: Acute Respiratory failure secondary to cardiac arrest Continue full mechanical ventilation support to prevent hypoxemia/hypercarbia and end organ damage. ABG and PCXR reviewed and will repeat in am. Chest x-ray shows opacities on both sides consistent with either aspiration pneumonia or pulmonary edema Low tidal volume ventilation strategy to prevent volutrauma Bronchodilators (3) Shock: Code(s): R57.9 - Shock, unspecified Status: Acute Assessment and Plan: Cardiogenic versus septic shock. He was on epinephrine and norepinephrine. But now weaned off Continue empiric antibiotics. Blood and sputum cultures pending. (4) Lactic acidosis: Code(s): E87.2 - Acidosis Status: Acute Assessment and Plan: Secondary to arrest with hypoperfusion and hypoxia. Continue Empiric Zosyn for aspiration pneumonia Blood cultures pending. (5) Non-STEMI (non-ST elevated myocardial infarction): Code(s): I21.4 - Non-ST elevation (NSTEMI) myocardial infarction Status: Acute Assessment and Plan: Elevation in troponin likely secondary to cardiac arrest patient has history of coronary artery disease and CABG No ST elevation on EKG Cardiology consulted Continue aspirin and Plavix Resume beta-keila now since bradycardia has resolved Echocardiogram reviewed (6) End-stage renal disease on hemodialysis: Code(s): N18.6 - End stage renal disease; Z99.2 - Dependence on renal dialysis Status: Acute Assessment and Plan: Consulted nephrology when due for dialysis. Plan to dialyze today (7) Seizure: Code(s): R56.9 - Unspecified convulsions Status: Acute Assessment and Plan: Seizure versus myoclonic jerking Currently on Propofol and Keppra Will obtain EEG once patient is reformed (8) Chronic obstructive pulmonary disease: Code(s): J44.9 - Chronic obstructive pulmonary disease, unspecified Status: Acute Assessment and Plan: Bronchodilators (9) Coronary artery disease: Code(s): I25.10 - Atherosclerotic heart disease of [place] coronary artery without angina pectoris Status: Acute Assessment and Plan: ECHO Summary 1. Complete two-dimensional, color flow and Doppler transthoracic echocardiogram is performed. 2. The left ventricle is mildly enlarged with moderate concentric hypertrophy. There is severe global left ventricular dysfunction, with also akinesis of the mid inferior septal and inferolateral correa. The calculated ejection fraction is 30 3% and visually it is 25-30%. Diastolic function is indeterminate. Global longitudinal strain is also severely reduced at 7% consistent with severe left ventricular dysfunction. 3. Right ventricular chamber dimension is mildly enlarged with mild hypokinesis. 4. Left atrial chamber dimension is moderately enlarged. 5. There is mild aortic valve calcification. There is a suggestion of short thin fibrinous mobile masses associated with the valve which gives the appearance of benign Lambl's excrescences, although vegetations and artifact cannot be excluded. 6. There is mild mitral valve regurgitation. 7. There is mild tricuspid valve regurgitation. 8. Mild pulmonary hypertension, estimated pulmonary arterial systolic pressure is 40 mmHg.
[2020-08-29] MEDS: PROPOFOL IV EMULSION 100 ML 14.85 MG IV CONT (11:20)
--- NOTE | 2020-08-29 11:27 | PCDIET ---
ICU Rounding Note: Patient rewarmed with plan to start tube feedings today. Recommend Nepro at goal of 45mL/hr x 22 hours/day for 1782kcal and 81 g protein daily. Plan to wean sedation today, thus can meet calorie needs with enteral feedings alone (no Propofol). 22-25kcal/kg = 1600-1800kcal while intubated Consider phosphorus binder. Last recorded weight is 75kg which is increased from last review. +I/O. Plan for dialysis today. Bowel Motility: BM x 1 on 08/28/20. Labs Reviewed: BUN (45), Cr (6.3), PO4 (7.3), Mg (2.4) Meds Noted: Albumin, Novolog, Zosyn, Albuterol, Atrovent, Epogen, Heparin, Levophed, Protonix, Propofol (current rate of 14.85mL/hr provides 392kcal per day) Additional Notes: Medial chest scab documented. Following daily in ICU rounds. Assessing/reassessing every Wednesday/Wednesday.
[2020-08-29 11:37] LABS: Glucose Point of Care 68 (65-105)
--- NOTE | 2020-08-29 12:12 | PM.EVENT ---
Event Note Event Note Event Note: Patient completed hypothermia protocol and rewarming now. Propofol discontinued and patient examined. No response to pain at this time. Patient's was at bedside and and I explained exam findings to her and explained the nature anoxic brain injury from cardiac arrest. We will continue support with mechanical ventilation, start tube feeds and continue to hold sedation at this time. I will order EEG and head CT. I also discussed goals of care with patient's and she told me that patient specifically told her that he would not want to go to a [facility]. He was also very reluctant in visiting physicians on his regular appointments. She also requested the patient not be resuscitated in the event of another cardiac arrest at this time considering significant anoxic brain injury, poor status of his heart and end-stage renal disease. I have made patient DNR in the chart as per patient's 's request. She told me that she will update patient's daughter by phone.
[2020-08-29 12:30] LABS: Glucose Point of Care 112 (65-105)
[2020-08-29 15:11] LABS: Hepatitis B Surface Antigen Negative (Negative)
[2020-08-29] MEDS: EPOETIN ALFA-EPBX 10,000 UNITS/ML VIAL 10000 UNITS IV PUSH (16:05)
--- NOTE | 2020-08-29 16:15 | PM.PNNEP ---
Progress Note: A&P Assessment and Plan (1) End stage renal disease: Code(s): N18.6 - End stage renal disease Status: Chronic Assessment and Plan: HD today and continue T/T/S schedule follow electrolytes, volume status, and clearance (2) Cardiac arrest: Code(s): I46.9 - Cardiac arrest, cause unspecified Status: Acute Assessment and Plan: precipitating event/issue?? Cardiology following no further arrhythmias since admission follow telemetry (3) Acute respiratory failure: Code(s): J96.00 - Acute respiratory failure, unspecified whether with hypoxia or hypercapnia Status: Acute Assessment and Plan: secondary to cardiac arrest complicated by known history of COPD on ventilator support (4) Shock: Code(s): R57.9 - Shock, unspecified Status: Acute Assessment and Plan: initially on pressors but not currently stable hemodynamics noted follow cultures (5) Elevated troponin: Code(s): R77.8 - Other specified abnormalities of plasma proteins Status: Acute Assessment and Plan: more likely related to cardiac arrest rather than acute cardiac event (i.e. [place]) Cardiology following (6) Lactic acidosis: Code(s): E87.2 - Acidosis Status: Acute Assessment and Plan: due to organ hypoperfusion from cardiac arrest follow trend Will continue to follow. Subjective Date/time seen: 08/29/20 15:45 Tolerating dialysis treatment at the time of my visit; note seizure activity during treatment but stabilized with use of IV propofol; no apparent distress noted at this time; no events overnight or earlier this AM. Exam Narrative: Exam Narrative: General: chronically ill appearing male intubated/sedated Heart: normal S1 and S2; no rub Lungs: clear to auscultation Abdomen: soft, nontender, nondistended, positive bowel sounds Extremities: no cyanosis or clubbing; no edema Skin: warm and dry Objective Data Vital Signs Vital Signs: Vital Signs Temp Pulse Resp BP Pulse Ox 08/29/20 15:45 100 89/67 L 08/29/20 15:30 100 96/73 L 08/29/20 15:15 105 H 104/60 08/29/20 15:05 105 H 90/76 L 08/29/20 15:00 105 H 80/51 L 08/29/20 14:45 113 H 140/84 08/29/20 14:30 108 H 170/96 H 08/29/20 14:15 106 H 165/73 H 08/29/20 14:10 104 H 99 08/29/20 14:00 37.6 C 107 H 15 182/106 H 99 08/29/20 13:45 105 H 175/101 H 08/29/20 13:39 103 H 160/102 H 08/29/20 13:15 37.5 C 102 H 26 H 175/95 H 100 08/29/20 12:00 37.4 C 100 26 H 166/89 H 99 08/29/20 11:30 37.4 C 100 15 166/89 H 100 08/29/20 11:08 91 100 08/29/20 11:00 37.0 C 96 15 143/73 H 100 08/29/20 10:29 86 15 158/85 H 100 08/29/20 10:00 84 08/29/20 09:30 86 19 157/88 H 100 08/29/20 08:30 35.9 C L 78 15 142/77 H 100 08/29/20 08:00 79 15 100 08/29/20 07:38 78 100 08/29/20 07:31 77 21 H 08/29/20 07:30 34.2 C L 71 15 149/86 H 100 08/29/20 06:14 65 17 08/29/20 06:00 35.0 C L 62 15 145/93 H 100 08/29/20 05:00 34.7 C L 74 19 171/102 H 100 08/29/20 04:21 77 100 08/29/20 04:00 35.5 C L 77 19 155/81 H 100 08/29/20 03:50 75 20 08/29/20 03:00 35.1 C L 72 20 142/86 H 100 08/29/20 02:38 72 19 08/29/20 02:29 70 20 100 08/29/20 02:00 34.3 C L 60 16 133/83 100 08/29/20 01:00 34.0 C L 56 L 16 146/67 H 100 08/29/20 00:00 33.7 C L 59 L 17 158/92 H 100 08/28/20 23:00 32.8 C L 60 18 135/82 100 08/28/20 22:54 59 L 100 08/28/20 22:00 33.2 C L 44 L 15 142/83 H 100 08/28/20 21:47 43 L 15 08/28/20 21:10 54 L 15 08/28/20 21:00 33.3 C L 52 L 15 143/99 H 100 08/28/20 20:30 52 L 15 08/28/20 20:19 53 L 18 08/28/20 20:15 54 L 19 08/28/20 20:10 59 L 18 100 08/28/20 20:00 33.1 C L 56 L 19 156/89 H 100 08/28/20 19:00
[2020-08-29 17:16] LABS: Glucose Point of Care 74 (65-105)
[2020-08-29] MEDS: carvediloL 12.5 MG TABLET PO ×2 (17:20→19:42)
[2020-08-29] MEDS: PROPOFOL IV EMULSION 100 ML 12.73 MG IV CONT (19:34)
[2020-08-29 19:39] LABS: Anion Gap 5 mmol/L (8-16); Blood Urea Nitrogen 23 mg/dL (9-20); Calcium 9.7 mg/dL (8.4-10.2); Carbon Dioxide 32 mmol/L (22-30); Chloride 101 mmol/L (98-107); Estimated CRCL calculation 20 ml/min; Estimated Glomerular Filt Rate 17; Glucose 102 mg/dL (75-110); Magnesium 2.1 mg/dL (1.6-2.3); Phosphorus 4.7 mg/dL (2.5-4.5); Potassium 4.2 mmol/L (3.4-5.0); Sodium 138 mmol/L (137-145)
[2020-08-29 19:53] LABS: Glucose Point of Care 74 (65-105)
--- NOTE | 2020-08-29 20:15 | ECG_ITS ---
Measurements Intervals [place] Rate: 97 P: 68 IN: 189 QRS: 101 QRSD: 172 T: -65 QT: 465 QTc: 592 Interpretive Statements SINUS RHYTHM ATRIAL AND FREQUENT VENTRICULAR PREMATURE COMPLEXES POSSIBLE LEFT ATRIAL ENLARGEMENT RIGHT AXIS DEVIATION RIGHT BUNDLE BRANCH BLOCK BORDERLINE ST-T WAVE ABNORMALITY- INFERIOR LEADS ABNORMAL ECG Electronically Signed On 08-30-2020 6:51:40 [employer] by Steve Chowdhury D.O.
[2020-08-29 22:57] LABS: Glucose Point of Care 85 (65-105)
[2020-08-30] VITALS (37 sets, daily range): BP systolic 93–142; BP diastolic 49–92; PULSE 73–97; RESP 15–32; TEMP 37.7–38.4; O2SAT 99–100
[2020-08-30] MEDS: IPRATROPIUM BR 0.02% INH SOLN 0.5 MG/2.5 ML VIAL INHALATION ×4 (01:43→19:51)
[2020-08-30] MEDS: ALBUTEROL SULFATE NEB 2.5 MG/0.5 ML INH INHALATION ×4 (01:43→19:51)
[2020-08-30] MEDS: ACETAMINOPHEN 325 MG TABLET 650 MG PO ×2 (02:13→17:03)
[2020-08-30 04:08] LABS: Alveolar/Arterial O2 Gradient 78.3 mmHg; Base Excess ABG 3.4 mEq/l (+/-2.0); Carboxyhemoglobin 0.5 % THb (0-2.0); Fractional Inspired Oxygen 30 %; HCO3 ABG 28.8 mEq/l (22.0-26.0); Methemoglobin ABG 0.3 %THb (0-1.5); Oxygen Content ABG 12.1 %vol (16.0-22.0); Oxygen Saturation ABG 95.5 % (95.0-100.0); PCO2 ABG 48.3 mmHg (35.0-45.0); PO2 ABG 78.9 mmHg (80.0-100.0); PO2 FiO2 Ratio Arterial Blood 2.63 %; Reduced Hemoglobin 6.2 %THb (0-5.0); Total Hemoglobin 9.2 g/dL (12.0-18.0); pH ABG 7.394 (7.350-7.450)
[2020-08-30 04:09] LABS: Device VENTILATOR; Modified Allen's Test Unable to perform; Site Drawn RIGHT RADIAL
[2020-08-30 04:10] LABS: Arterial Blood Gas PEEP 5 cmH2O; Arterial Blood Gas Tidal Volume 350 ml; Arterial Blood Gas Vent Mode CMV; Arterial Blood Gas Ventilator rate 15 /MIN
[2020-08-30] MEDS: CENTRAL LINE FLUSH 10 ML IV PUSH ×3 (05:00→20:42)
[2020-08-30 05:03] LABS: Glucose Point of Care 73 (65-105)
[2020-08-30 05:07] LABS: Hematocrit 25.9 % (42.0-52.0); Hemoglobin 8.2 g/dL (14.0-18.0); Mean Corpuscular HGB Conc 31.7 g/dl (32-36); Mean Corpuscular Hemoglobin 27.8 pg (26-34); Mean Corpuscular Volume 87.8 fl (80-100); Platelet Count Result 188 k/mm3 (150-375); Red Blood Count 2.95 M/mm3 (4.6-6.20); Red Cell Distribution Width 16.5 % (11.5-14.5); White Blood Count 11.7 K/mm3 (4.5-10.0)
[2020-08-30 05:21] LABS: Alanine Aminotransferase 319 U/L (4-50); Albumin Level 2.8 g/dL (3.5-5.1); Alkaline Phosphatase 79 U/L (38-126); Anion Gap 7 mmol/L (8-16); Aspartate Amino Transferase 243 U/L (17-59); Bilirubin,Total 0.4 mg/dL (0.2-1.3); Blood Urea Nitrogen 34 mg/dL (9-20); Calcium 9.5 mg/dL (8.4-10.2); Carbon Dioxide 31 mmol/L (22-30); Chloride 100 mmol/L (98-107); Estimated CRCL calculation 16 ml/min; Estimated Glomerular Filt Rate 13; Glucose 96 mg/dL (75-110); Magnesium 2.2 mg/dL (1.6-2.3); Sodium 138 mmol/L (137-145)
[2020-08-30] MEDS: carvediloL 12.5 MG TABLET PO ×2 (08:48→20:41)
[2020-08-30] MEDS: levETIRAcetam 500MG/NACL 100ML 500 MG/100 ML BAG 400 MG IVPB ×2 (08:48→20:41)
[2020-08-30] MEDS: HEPARIN SODIUM 5,000 UNITS/ML VIAL 5000 UNITS SUB-Q ×2 (08:48→20:46)
[2020-08-30] MEDS: PANTOPRAZOLE SODIUM IV 40 MG VIAL IV PUSH (08:48)
[2020-08-30] MEDS: CLOPIDOGREL BISULFATE 75 MG TABLET PO (08:48)
[2020-08-30] MEDS: ASPIRIN 325 MG TABLET PO (08:48)
[2020-08-30] MEDS: PROPOFOL IV EMULSION 100 ML 18 MG IV CONT (09:06)
--- NOTE | 2020-08-30 10:36 | PM.IMPN ---
Progress Note: A&P Assessment and Plan (1) Cardiac arrest: Code(s): I46.9 - Cardiac arrest, cause unspecified Status: Acute Assessment and Plan: secondary to ventricular fibrillation status post cardioversion and amiodarone drip amiodarone was stopped because of bradycardia patient was treated with hypothermia protocol cardiology was consulted (2) Acute respiratory failure: Code(s): J96.00 - Acute respiratory failure, unspecified whether with hypoxia or hypercapnia Status: Acute Assessment and Plan: Acute hypoxemic Respiratory failure secondary to cardiac arrest and probably aspiration pneumonia currently on a vent (3) Shock: Code(s): R57.9 - Shock, unspecified Status: Acute Assessment and Plan: probably cardiogenic and septic shock treated with Levophed wean off pressors continue antibiotics (4) Lactic acidosis: Code(s): E87.2 - Acidosis Status: Acute Assessment and Plan: secondary to hypoperfusion and hypoxia continue antibiotics treated with Levophed (5) Non-STEMI (non-ST elevated myocardial infarction): Code(s): I21.4 - Non-ST elevation (NSTEMI) myocardial infarction Status: Acute Assessment and Plan: probably NSTEMI type 2 secondary to demand ischemia cardiology was consulted aspirin Plavix resume beta-keila as bradycardia resolved (6) End-stage renal disease on hemodialysis: Code(s): N18.6 - End stage renal disease; Z99.2 - Dependence on renal dialysis Status: Acute Assessment and Plan: nephrology consulted dialysis per Nephrology (7) Seizure: Code(s): R56.9 - Unspecified convulsions Status: Acute Assessment and Plan: Seizure versus myoclonic jerking Keppra EEG (8) Chronic obstructive pulmonary disease: Code(s): J44.9 - Chronic obstructive pulmonary disease, unspecified Status: Acute Assessment and Plan: Bronchodilators (9) Coronary artery disease: Code(s): I25.10 - Atherosclerotic heart disease of [place] coronary artery without angina pectoris Status: Acute Assessment and Plan: echo was reviewed cannot exclude vegetation pad cutter following cardiology following continu aspirin Plavix (10) Anoxic brain injury: Code(s): G93.1 - Anoxic brain damage, not elsewhere classified Status: Acute Assessment and Plan: CT scan showed old CVA probably poor prognosis probably anoxic brain injury EEG was done (11) Hyperkalemia: Code(s): E87.5 - Hyperkalemia Status: Acute Assessment and Plan: patient was hypokalemic on presentation developed hyperkalemia during hospitalization nephrology following Subjective Date/time seen: 08/30/20 10:36 Interval history: 59 years old male with complicated past medical history of coronary artery disease COPD ESRD on dialysis patient was not feeling well the week before admission he has some chest tightness but patient did not seek medical advice after patient had dialysis when he was going back to half-way he developed episode of cardiopulmonary arrest required resuscitation patient was found to have vFib and asystole he had multiple episodes of VFib required cardioversion and amiodarone drip cardiology was consulted on admission patient was found to have shock probably cardiogenic shock also chest x-ray shows infiltrate probable aspiration pneumonia patient also have jerky movement concern for seizure versus myoclonic patient was treated with propofol EEG was ordered concern for anoxic brain injury patient was switched to DNR ejection fraction was found to be 20-30% on echo patient unable to provide history Exam Narrative: Exam Narrative: intubated not sedated Chest no wheeze crackles Abdomen nontender nondistended CVS S1 + S2 does not follow command Objective Data Vital Signs Vital Signs: Vital Signs - 24 hr 08/29/20 11:00 08/29/20 11:08
--- NOTE | 2020-08-30 10:37 | PM.PNCARD ---
Progress Note: A&P Additional Plan 59-year-old patient with established history of severe ischemic cardiomyopathy who unfortunately did not consent to ICD who now has suffered [id number] VFib and following resuscitation appears to have a severe anoxic encephalopathy. Prognosis for recovery is extremely poor in my opinion no specific cardiac recommendations at this time. Staff are appropriately in conversation with the family/next of kin regarding wishes to consider withdrawing care Flex Xie MD [facility] Subjective Date/time seen: Date of service: 08/30/20 10:37 Interval history: Follow-up visit in this 59-year-old man with well established severe ischemic cardiomyopathy who refused ICD implantation by his cloth burler. Patient experienced [id number] VFib following hemodialysis. He is unresponsive on the ventilator in the ICU and neurological prognosis appears to be very poor Exam Const: Other: Unresponsive chronically ill-appearing patient on ventilator support HENMT: Mouth: Yes dry mucous membranes Eyes: Sclera: sclerae normal Neck: Neck: supple Other: Carotid pulses are intact no bruits audible Resp: Other: Breath sounds per the ventilator central rhonchi are noted Cardio: Rate: regular rate Rhythm: regular rhythm Other: Soft systolic murmur does not radiate from the left sternal border GI: GI Palp: Yes Soft to palpation Auscultation: normal bowel sounds Skin: General skin exam: normal color Neuro: Other: Unresponsive Extrem: General: normal to inspection Objective Data Vital Signs Vital Signs: Vital Signs - 24 hr 08/29/20 11:00 08/29/20 11:08 08/29/20 11:30 Temperature 37.0 C 37.4 C Pulse Rate 96 91 100 Respiratory Rate 15 15 Blood Pressure 143/73 H 166/89 H Pulse Oximetry 100 100 100 08/29/20 12:00 08/29/20 13:15 08/29/20 13:39 Temperature 37.4 C 37.5 C Pulse Rate 100 102 H 103 H Respiratory Rate 26 H 26 H Blood Pressure 166/89 H 175/95 H 160/102 H Pulse Oximetry 99 100 08/29/20 13:45 08/29/20 14:00 08/29/20 14:10 Temperature 37.6 C Pulse Rate 105 H 107 H 104 H Respiratory Rate 15 Blood Pressure 175/101 H 182/106 H Pulse Oximetry 99 99 08/29/20 14:15 08/29/20 14:30 08/29/20 14:45 Temperature Pulse Rate 106 H 108 H 113 H Respiratory Rate Blood Pressure 165/73 H 170/96 H 140/84 Pulse Oximetry 08/29/20 15:00 08/29/20 15:05 08/29/20 15:15 Temperature Pulse Rate 105 H 105 H 105 H Respiratory Rate Blood Pressure 80/51 L 90/76 L 104/60 Pulse Oximetry 08/29/20 15:30 08/29/20 15:45 08/29/20 16:00 Temperature 37.8 C H Pulse Rate 100 100 107 H Respiratory Rate 20 Blood Pressure 96/73 L 89/67 L 95/71 L Pulse Oximetry 100 08/29/20 16:15 08/29/20 16:30 08/29/20 16:31 Temperature Pulse Rate 110 H 101 H 101 H Respiratory Rate Blood Pressure 114/55 L 111/94 H Pulse Oximetry 100 08/29/20 16:45 08/29/20 17:00 08/29/20 17:09 Temperature Pulse Rate 102 H 103 H 104 H Respiratory Rate Blood Pressure 127/100 H 99/61 L 89/69 L Pulse Oximetry 08/29/20 17:20 08/29/20 17:25 08/29/20 18:00 Temperature 37.7 C H 37.7 C H Pulse Rate 92 102 H 98 Respiratory Rate 22 H 21 H Blood Pressure 137/84 121/72 Pulse Oximetry 99 99 08/29/20 19:08 08/29/20 19:11 08/29/20 19:13 Temperature Pulse Rate 95 94 97 Respiratory Rate 16 16 Blood Pressure Pulse Oximetry 99 08/29/20 19:42 08/29/20 20:00 08/29/20 22:00 Temperature 37.9 C H 37.9 C H Pulse Rate 96 92 93 Respiratory Rate 18 27 H Blood Pressure 155/93 H 126/77 Pulse Oximetry 99 98 08/29/20 22:48 08/30/20 00:00 08/30/20 01:44 Temperature 38.1 C H Pulse Rate 87 85 87 Respiratory Rate 15 15 Blood Pressure 95/68 L Pulse Oximetry 98 99 99 08/30/20 01:51 08/30/20 02:00 08/30/20 02:13 Temperature 38.3 C H 38.3 C H Pulse Rate 88 88 Respiratory Rate 16 17 Blood Pressure 125/61 Pulse Oximetry 100 08/30/20
[2020-08-30 11:42] LABS: Glucose Point of Care 76 (65-105)
--- NOTE | 2020-08-30 11:48 | WPDINTPN ---
Progress Note: A&P Assessment and Plan (1) Acute respiratory failure: Code(s): J96.00 - Acute respiratory failure, unspecified whether with hypoxia or hypercapnia Status: Acute Assessment and Plan: Acute Respiratory failure secondary to cardiac arrest Continue full mechanical ventilation support to prevent hypoxemia/hypercarbia and end organ damage. ABG and PCXR reviewed and will repeat in am. Chest x-ray shows opacities on both sides consistent with either aspiration pneumonia or pulmonary edema Low tidal volume ventilation strategy to prevent volutrauma Bronchodilators Continue Zosyn (2) Anoxic brain injury: Code(s): G93.1 - Anoxic brain damage, not elsewhere classified Status: Acute Assessment and Plan: Head CT on presentation showed old CVAs Patient completed TTM protocol at 1:00 a.m. yesterday and is now rewarmed Post holding sedation patient did not wake up. After holding sedation for multiple are patient started having seizures again on the right side and propofol was resumed Head CT repeated this morning IMPRESSION: 1. Diffuse hypoattenuation of the isabel matter, consistent with infarct. 2. 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 Head CT is consistent with anoxic injury. EEG was also done this morning and report pending (3) Cardiac arrest: Code(s): I46.9 - Cardiac arrest, cause unspecified Status: Acute Assessment and Plan: Patient was in ventricular fibrillation on EMS arrival, status post cardioversion. He has been started on amiodarone drip and an echocardiogram has been ordered for a.m.. Stock Roller consulted Amiodarone was started on presentation but later discontinued due to significant sinus bradycardia in 40s (4) Shock: Code(s): R57.9 - Shock, unspecified Status: Acute Assessment and Plan: Cardiogenic versus septic shock. He was on epinephrine and norepinephrine. But now weaned off Continue empiric antibiotics. Blood and sputum cultures negative (5) Lactic acidosis: Code(s): E87.2 - Acidosis Status: Acute Assessment and Plan: Resolved Secondary to arrest with hypoperfusion and hypoxia. (6) Non-STEMI (non-ST elevated myocardial infarction): Code(s): I21.4 - Non-ST elevation (NSTEMI) myocardial infarction Status: Acute Assessment and Plan: Elevation in troponin likely secondary to cardiac arrest patient has history of coronary artery disease and CABG No ST elevation on EKG Cardiology consulted Continue aspirin, beta-keila and Plavix Echocardiogram reviewed (7) End-stage renal disease on hemodialysis: Code(s): N18.6 - End stage renal disease; Z99.2 - Dependence on renal dialysis Status: Acute Assessment and Plan: Consulted nephrology when due for dialysis. Patient was dialyzed yesterday (8) Seizure: Code(s): R56.9 - Unspecified convulsions Status: Acute Assessment and Plan: Seizure versus myoclonic jerking Currently on Propofol and Keppra EEG was done and is pending (9) Chronic obstructive pulmonary disease: Code(s): J44.9 - Chronic obstructive pulmonary disease, unspecified Status: Acute Assessment and Plan: Bronchodilators (10) Coronary artery disease: Code(s): I25.10 - Atherosclerotic heart disease of [place] coronary artery without angina pectoris Status: Acute Assessment and Plan: ECHO Summary 1. Complete two-dimensional, color flow and Doppler transthoracic echocardiogram is performed. 2. The left ventricle is mildly enlarged with moderate concentric hypertrophy. There is severe global left ventricular dysfunction, with also akinesis of the mid inferior septal and inferolateral correa. The calculated ejection fraction is 30 3% and visually it is 25-30%. Diastolic function is indeterminate. Global longitudinal strain is also severely reduced at 7% consistent with se
--- NOTE | 2020-08-30 11:58 | PCNFU ---
Nutrition Follow-Up Complete: Inadequate oral intake related to oral intubation as evidenced by NPO status. Goal:Patient to meet estimated nutritional needs. Progressing towards goal. We will continue current goal. Pt current nutrition is Nepro at 35 ml/hr. Last recorded weight is 71.1 kg, down from 72.6 kg on admit. Bowel Motility:+BM reported 08/29 Labs Reviewed:Cr 4.6,BUN 34,Alb 2.9 Meds Noted:Propofol 13.5 ml/hr, Protonix,Zosyn Additional Notes: Nutrition follow up. Patient remains on mechanical vent and tube feedings of Nepro currently at 35 ml/hr down from 45 ml/hr. Patient remains on Propofol at 13.5 ml/hr providing an additional 356 kcals. Current calorie intake at this time, 1742 kcals and 62 gms protein. If propofol is discontinued would recommend increasing tube feeding of Nepro at 45 ml/hr. EEG and head CT planned for today. Monitoring: Reassessing every Wednesday and Wednesday. Follow daily in ICU rounds.
--- NOTE | 2020-08-30 13:07 | PM.PNNEP ---
Progress Note: A&P Assessment and Plan (1) End stage renal disease: Code(s): N18.6 - End stage renal disease Status: Chronic Assessment and Plan: HD tomorrow and continue T/T/S schedule follow electrolytes, volume status, and clearance (2) Cardiac arrest: Code(s): I46.9 - Cardiac arrest, cause unspecified Status: Acute Assessment and Plan: precipitating event/issue?? Cardiology following no further arrhythmias since admission follow telemetry (3) Acute respiratory failure: Code(s): J96.00 - Acute respiratory failure, unspecified whether with hypoxia or hypercapnia Status: Acute Assessment and Plan: secondary to cardiac arrest complicated by known history of COPD on ventilator support (4) Shock: Code(s): R57.9 - Shock, unspecified Status: Acute Assessment and Plan: initially on pressors but not currently stable hemodynamics noted follow cultures (5) Elevated troponin: Code(s): R77.8 - Other specified abnormalities of plasma proteins Status: Acute Assessment and Plan: more likely related to cardiac arrest rather than acute cardiac event (i.e. [place]) Cardiology following (6) Seizure: Code(s): R56.9 - Unspecified convulsions Status: Acute Assessment and Plan: as noted by events since admission Neurology following follow-up on EEG results (7) Lactic acidosis: Code(s): E87.2 - Acidosis Status: Acute Assessment and Plan: due to organ hypoperfusion from cardiac arrest follow trend Will continue to follow. Subjective Date/time seen: 08/30/20 13:07 Tolerated hemodialysis treatment yesterday without any issues or problems; on/off fevers in the last 24 hours; EEG and repeat head CT done this AM -- new infarct noted on CT of head; remains hemodynamically stable at this time; no other events/issues overnight or this AM. Exam Narrative: Exam Narrative: General: chronically ill appearing male intubated/sedated Heart: normal S1 and S2; no rub Lungs: clear to auscultation Abdomen: soft, nontender, nondistended, positive bowel sounds Extremities: no cyanosis or clubbing; no edema Skin: warm and intact Objective Data Vital Signs Vital Signs: Vital Signs Temp Pulse Resp BP Pulse Ox 08/30/20 12:00 37.9 C H 77 24 H 105/68 100 08/30/20 11:05 76 100 08/30/20 10:17 73 20 08/30/20 10:00 37.9 C H 74 20 93/69 L 100 08/30/20 09:06 80 26 H 08/30/20 08:48 86 08/30/20 08:36 90 23 H 08/30/20 08:00 37.9 C H 88 26 H 142/85 H 100 08/30/20 07:37 86 100 08/30/20 06:00 37.7 C H 80 19 113/49 L 100 08/30/20 04:00 37.9 C H 77 18 113/65 99 08/30/20 03:58 75 99 08/30/20 03:13 38.2 C H 08/30/20 02:13 38.3 C H 08/30/20 02:00 38.3 C H 88 17 125/61 100 08/30/20 01:51 88 16 08/30/20 01:44 87 15 99 08/30/20 00:00 38.1 C H 85 15 95/68 L 99 08/29/20 22:48 87 98 08/29/20 22:00 37.9 C H 93 27 H 126/77 98 08/29/20 20:00 37.9 C H 92 18 155/93 H 99 08/29/20 19:42 96 08/29/20 19:13 97 16 08/29/20 19:11 94 99 08/29/20 19:08 95 16 08/29/20 18:00 37.7 C H 98 21 H 121/72 99 08/29/20 17:25 37.7 C H 102 H 22 H 137/84 99 08/29/20 17:20 92 08/29/20 17:09 104 H 89/69 L 08/29/20 17:00 103 H 99/61 L 08/29/20 16:45 102 H 127/100 H 08/29/20 16:31 101 H 100 08/29/20 16:30 101 H 111/94 H 08/29/20 16:15 110 H 114/55 L 08/29/20 16:00 37.8 C H 107 H 20 95/71 L 100 08/29/20 15:45 100 89/67 L 08/29/20 15:30 100 96/73 L 08/29/20 15:15 105 H 104/60 Intake/Output Intake/Output: Intake & Output 08/27/20 08/28/20 08/29/20 08/30/20 23:59 23:59 23:59 23:59 Intake Total 1821 2135 704 749 Output Total 166 755 9335 10 Balance 1652 4473 -4853 739 Meds/Results Medication
--- NOTE | 2020-08-30 13:07 | P.PNNP_ITS ---
Progress Note: A&P Assessment and Plan (1) End stage renal disease: Code(s): N18.6 - End stage renal disease Status: Chronic Assessment and Plan: * HD tomorrow and continue T/T/S schedule * follow electrolytes, volume status, and clearance (2) Cardiac arrest: Code(s): I46.9 - Cardiac arrest, cause unspecified Status: Acute Assessment and Plan: * precipitating event/issue?? * Cardiology following * no further arrhythmias since admission * follow telemetry (3) Acute respiratory failure: Code(s): J96.00 - Acute respiratory failure, unspecified whether with hypoxia or hypercapnia Status: Acute Assessment and Plan: * secondary to cardiac arrest * complicated by known history of COPD * on ventilator support (4) Shock: Code(s): R57.9 - Shock, unspecified Status: Acute Assessment and Plan: * initially on pressors but not currently * stable hemodynamics noted * follow cultures (5) Elevated troponin: Code(s): R77.8 - Other specified abnormalities of plasma proteins Status: Acute Assessment and Plan: * more likely related to cardiac arrest rather than acute cardiac event (i.e. [place]) * Cardiology following (6) Seizure: Code(s): R56.9 - Unspecified convulsions Status: Acute Assessment and Plan: * as noted by events since admission * Neurology following * follow-up on EEG results (7) Lactic acidosis: Code(s): E87.2 - Acidosis Status: Acute Assessment and Plan: * due to organ hypoperfusion from cardiac arrest * follow trend Will continue to follow. Subjective Date/time seen: 08/30/20 13:07 Tolerated hemodialysis treatment yesterday without any issues or problems; on/off fevers in the last 24 hours; EEG and repeat head CT done this AM -- new infarct noted on CT of head; remains hemodynamically stable at this time; no oth er events/issues overnight or this AM. Exam Narrative: Exam Narrative: General: chronically ill appearing male intubated/sedated Heart: normal S1 and S2; no rub Lungs: clear to auscultation Abdomen: soft, nontender, nondistended, positive bowel sounds Extremities: no cyanosis or clubbing; no edema Skin: warm and intact Objective Data Vital Signs Vital Signs: Vital Signs Temp Pulse Resp BP Pulse Ox 08/30/20 12:00 37.9 C H 77 24 H 105/68 100 08/30/20 11:05 76 100 08/30/20 10:17 73 20 08/30/20 10:00 37.9 C H 74 20 93/69 L 100 08/30/20 09:06 80 26 H 08/30/20 08:48 86 08/30/20 08:36 90 23 H 08/30/20 08:00 37.9 C H 88 26 H 142/85 H 100 08/30/20 07:37 86 100 08/30/20 06:00 37.7 C H 80 19 113/49 L 100 08/30/20 04:00 37.9 C H 77 18 113/65 99 08/30/20 03:58 75 99 08/30/20 03:13 38.2 C H 08/30/20 02:13 38.3 C H 08/30/20 02:00 38.3 C H 88 17 125/61 100 08/30/20 01:51 88 16 08/30/20 01:44 87 15 99 08/30/20 00:00 38.1 C H 85 15 95/68 L 99 08/29/20 22:48 87 98 08/29/20 22:00 37.9 C H 93 27 H 126/77 98 08/29/20 20:00 37.9 C H 92 18 155/93 H 99 08/29/20 19:42 96 08/29/20 19:13 97 16 08/29/20 19:11 94 99 08/29/20 19:08 95 16
[2020-08-30] MEDS: PROPOFOL IV EMULSION 100 ML 15.75 MG IV CONT ×2 (16:15→21:59)
--- NOTE | 2020-08-30 16:35 | WPDNEUROLOGY ---
Neurology EEG Report General Information Date of Study: 08/30/20 TEST eeg DIAGNOSIS anoxic brain injury CONDITION OF RECORDING patient is of propofol for about 5 minutes into the tracing pressing around an extra 15 minutes to get a full tracing while off sedation. And patient is comatose EEG NUMBER 21- bedside in ICU EEG DESCRIPTION basic resting occipital frequency consists of very low voltage 8 to 9 hertz per 2nd alpha admixed with low-voltage 15 to 18 hertz per 2nd beta activity in addition to low voltage 3 to 4 hertz per 2nd delta activity hyperventilation obviously not done. Photic stimulation not done either. Non paroxysmal. Nonfocal. Nonlateralizing. IMPRESSION Slow activity that is theta and delta activity without any paroxysmal discharge .clinical correlation recommended these abnormalities are suggestive of underlying organic or metabolic encephalopathy
[2020-08-30 18:18] LABS: Glucose Point of Care 87 (65-105)
[2020-08-31] VITALS (48 sets, daily range): BP systolic 92–128; BP diastolic 48–99; PULSE 65–88; RESP 16–28; TEMP 36.6–38.4; O2SAT 93–100
[2020-08-31 00:21] LABS: Glucose Point of Care 90 (65-105)
[2020-08-31] MEDS: ALBUTEROL SULFATE NEB 2.5 MG/0.5 ML INH INHALATION ×4 (03:01→19:47)
[2020-08-31] MEDS: IPRATROPIUM BR 0.02% INH SOLN 0.5 MG/2.5 ML VIAL INHALATION ×4 (03:01→19:47)
[2020-08-31] MEDS: PROPOFOL IV EMULSION 100 ML 15.75 MG IV CONT (04:43)
[2020-08-31] MEDS: CENTRAL LINE FLUSH 10 ML IV PUSH ×3 (05:59→21:06)
[2020-08-31 06:10] LABS: Alveolar/Arterial O2 Gradient 83.5 mmHg; Base Excess ABG 1.4 mEq/l (+/-2.0); Carboxyhemoglobin 0.8 % THb (0-2.0); Fractional Inspired Oxygen 30 %; HCO3 ABG 25.9 mEq/l (22.0-26.0); Methemoglobin ABG 0.3 %THb (0-1.5); Oxygen Saturation ABG 96.4 % (95.0-100.0); Oxyhemoglobin 94.2 % THb (90.0-100.0); PCO2 ABG 40.4 mmHg (35.0-45.0); PO2 ABG 82.9 mmHg (80.0-100.0); PO2 FiO2 Ratio Arterial Blood 2.76 %; Reduced Hemoglobin 4.7 %THb (0-5.0); Site Drawn RIGHT RADIAL; pH ABG 7.424 (7.350-7.450)
[2020-08-31 06:11] LABS: Arterial Blood Gas PEEP 5 cmH2O; Arterial Blood Gas Vent Mode CMV; Arterial Blood Gas Ventilator rate 15 /MIN; Device VENTILATOR; Modified Allen's Test Pass
[2020-08-31 06:12] LABS: Arterial Blood Gas Tidal Volume 350 ml
[2020-08-31 06:34] LABS: Hematocrit 24.1 % (42.0-52.0); Hemoglobin 7.6 g/dL (14.0-18.0); Mean Corpuscular HGB Conc 31.5 g/dl (32-36); Mean Corpuscular Hemoglobin 27.3 pg (26-34); Mean Corpuscular Volume 86.7 fl (80-100); Mean Platelet Volume 10.7 fl (7.4-10.4); Platelet Count Result 173 k/mm3 (150-375); Red Blood Count 2.78 M/mm3 (4.6-6.20); Red Cell Distribution Width 16.6 % (11.5-14.5); White Blood Count 10.7 K/mm3 (4.5-10.0)
[2020-08-31 06:58] LABS: Alanine Aminotransferase 255 U/L (4-50); Albumin Level 2.8 g/dL (3.5-5.1); Alkaline Phosphatase 78 U/L (38-126); Anion Gap 9 mmol/L (8-16); Aspartate Amino Transferase 161 U/L (17-59); Bilirubin,Total 0.5 mg/dL (0.2-1.3); Blood Urea Nitrogen 53 mg/dL (9-20); Carbon Dioxide 28 mmol/L (22-30); Chloride 99 mmol/L (98-107); Estimated CRCL calculation 11 ml/min; Estimated Glomerular Filt Rate 9; Glucose 87 mg/dL (75-110); Magnesium 2.4 mg/dL (1.6-2.3); Potassium 3.8 mmol/L (3.4-5.0); Sodium 136 mmol/L (137-145)
[2020-08-31] MEDS: carvediloL 12.5 MG TABLET PO (08:55)
[2020-08-31] MEDS: PANTOPRAZOLE SODIUM IV 40 MG VIAL IV PUSH (08:55)
[2020-08-31] MEDS: ASPIRIN 325 MG TABLET PO (08:55)
[2020-08-31] MEDS: CLOPIDOGREL BISULFATE 75 MG TABLET PO (08:55)
[2020-08-31] MEDS: levETIRAcetam 500MG/NACL 100ML 500 MG/100 ML BAG 400 MG IVPB ×2 (09:00→19:52)
[2020-08-31] MEDS: HEPARIN SODIUM 5,000 UNITS/ML VIAL 5000 UNITS SUB-Q ×2 (09:01→19:51)
--- NOTE | 2020-08-31 09:16 | WPDINTPN ---
Progress Note: A&P Assessment and Plan (1) Acute respiratory failure: Code(s): J96.00 - Acute respiratory failure, unspecified whether with hypoxia or hypercapnia Status: Acute Assessment and Plan: Acute Respiratory failure secondary to cardiac arrest Continue full mechanical ventilation support to prevent hypoxemia/hypercarbia and end organ damage. ABG and PCXR reviewed. Patient is on 30% FiO2 and a PEEP of 5 on CMV mode of ventilation. Chest x-ray shows opacities on both sides consistent with either aspiration pneumonia or pulmonary edema Low tidal volume ventilation strategy to prevent volutrauma Bronchodilators Continue Zosyn (2) Anoxic brain injury: Code(s): G93.1 - Anoxic brain damage, not elsewhere classified Status: Acute Assessment and Plan: Head CT on presentation showed old CVAs Patient completed TTM protocol at 1:00 a.m. yesterday and is now rewarmed Post holding sedation patient did not wake up. After holding sedation for multiple are patient started having seizures again on the right side and propofol was resumed Head CT repeated this morning IMPRESSION: 1. Diffuse hypoattenuation of the isabel matter, consistent with infarct. 2. 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 Head CT is consistent with anoxic injury. -EEG on 08/30/2020 : Slow activity that is theta and delta activity without any paroxysmal discharge .clinical correlation recommended these abnormalities are suggestive of underlying organic or metabolic encephalopathy -WILL FURTHER DISCUSS WITH NEUROLOGY (3) Cardiac arrest: Code(s): I46.9 - Cardiac arrest, cause unspecified Status: Acute Assessment and Plan: Patient was in ventricular fibrillation on EMS arrival, status post cardioversion. -remains on amiodarone infusion -echocardiogram 08/28/2020: EF of 25 30% with wall motion abnormalities mild pulmonary hypertension with RVSP of 40 mmHg -cardiology following the patient (4) Shock: Code(s): R57.9 - Shock, unspecified Status: Acute Assessment and Plan: Cardiogenic versus septic shock. He was on epinephrine and norepinephrine. Off all pressors Continue empiric antibiotics. Blood and sputum cultures negative (5) Lactic acidosis: Code(s): E87.2 - Acidosis Status: Acute Assessment and Plan: Resolved Secondary to arrest with hypoperfusion and hypoxia. (6) Non-STEMI (non-ST elevated myocardial infarction): Code(s): I21.4 - Non-ST elevation (NSTEMI) myocardial infarction Status: Acute Assessment and Plan: Elevation in troponin likely secondary to cardiac arrest patient has history of coronary artery disease and CABG No ST elevation on EKG Cardiology consulted Continue aspirin, beta-keila and Plavix Echocardiogram reviewed (7) End-stage renal disease on hemodialysis: Code(s): N18.6 - End stage renal disease; Z99.2 - Dependence on renal dialysis Status: Acute Assessment and Plan: Consulted nephrology when due for dialysis. Dialysis per Nephrology (8) Seizure: Code(s): R56.9 - Unspecified convulsions Status: Acute Assessment and Plan: Seizure versus myoclonic jerking Currently on Propofol and Keppra EEG is above (9) Chronic obstructive pulmonary disease: Code(s): J44.9 - Chronic obstructive pulmonary disease, unspecified Status: Acute Assessment and Plan: Bronchodilators (10) Coronary artery disease: Code(s): I25.10 - Atherosclerotic heart disease of [place] coronary artery without angina pectoris Status: Acute Assessment and Plan: ECHO Summary 1. Complete two-dimensional, color flow and Doppler transthoracic echocardiogram is performed. 2. The left ventricle is mildly enlarged with moderate concentric hypertrophy. There is severe global left ventricular dysfunction, with also akinesis of the mid inferior septal and in
--- NOTE | 2020-08-31 10:40 | PM.IMPN ---
Progress Note: A&P Assessment and Plan (1) Cardiac arrest: Code(s): I46.9 - Cardiac arrest, cause unspecified Status: Acute Assessment and Plan: secondary to ventricular fibrillation status post cardioversion and amiodarone drip amiodarone was stopped because of bradycardia patient was treated with hypothermia protocol cardiology was consulted (2) Acute respiratory failure: Code(s): J96.00 - Acute respiratory failure, unspecified whether with hypoxia or hypercapnia Status: Acute Assessment and Plan: Acute hypoxemic Respiratory failure secondary to cardiac arrest and probably aspiration pneumonia currently on a vent (3) Shock: Code(s): R57.9 - Shock, unspecified Status: Acute Assessment and Plan: probably cardiogenic and septic shock treated with Levophed wean off pressors continue antibiotics patient echo shows ejection fraction 20% with wall motion anomaly cardiology following (4) Lactic acidosis: Code(s): E87.2 - Acidosis Status: Acute Assessment and Plan: secondary to hypoperfusion and hypoxia continue antibiotics treated with Levophed (5) Non-STEMI (non-ST elevated myocardial infarction): Code(s): I21.4 - Non-ST elevation (NSTEMI) myocardial infarction Status: Acute Assessment and Plan: probably NSTEMI type 2 secondary to demand ischemia cardiology was consulted aspirin Plavix resume beta-keila as bradycardia resolved (6) End-stage renal disease on hemodialysis: Code(s): N18.6 - End stage renal disease; Z99.2 - Dependence on renal dialysis Status: Acute Assessment and Plan: nephrology consulted dialysis per Nephrology (7) Seizure: Code(s): R56.9 - Unspecified convulsions Status: Acute Assessment and Plan: Seizure versus myoclonic jerking Keppra EEG (8) Chronic obstructive pulmonary disease: Code(s): J44.9 - Chronic obstructive pulmonary disease, unspecified Status: Acute Assessment and Plan: Bronchodilators (9) Coronary artery disease: Code(s): I25.10 - Atherosclerotic heart disease of [place] coronary artery without angina pectoris Status: Acute Assessment and Plan: 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 cardiology following continu aspirin Plavix (10) Anoxic brain injury: Code(s): G93.1 - Anoxic brain damage, not elsewhere classified Status: Acute Assessment and Plan: CT scan showed old CVA probably poor prognosis probably anoxic brain injury EEG was done (11) Hyperkalemia: Code(s): E87.5 - Hyperkalemia Status: Acute Assessment and Plan: patient was hypokalemic on presentation developed hyperkalemia during hospitalization nephrology following Subjective Date/time seen: 08/31/20 10:40 Interval history: 59 years old male with complicated past medical history of coronary artery disease COPD ESRD on dialysis patient was not feeling well the week before admission he has some chest tightness but patient did not seek medical advice after patient had dialysis when he was going back to detention he developed episode of cardiopulmonary arrest required resuscitation patient was found to have vFib and asystole he had multiple episodes of VFib required cardioversion and amiodarone drip cardiology was consulted on admission patient was found to have shock probably cardiogenic shock also chest x-ray shows infiltrate probable aspiration pneumonia patient also have jerky movement concern for seizure versus myoclonic patient was treated with propofol EEG was ordered concern for anoxic brain injury patient was switched to DNR ejection fraction was found to be 20-30% on echo no change from yesterday patient unable to provide history Objective Data Vital Signs Vital Signs: Vital Signs - 24 hr 08/30/20 11:05 08/30/20 12:00 08/30/20 14:00 Temperature 100.3 F H 10
[2020-08-31 11:22] LABS: Glucose Point of Care 95 (65-105)
[2020-08-31] MEDS: VALPROIC ACID INJ 500 MG in DEXTROSE 5% 100 ML 100 MG IVPB (12:06)
--- NOTE | 2020-08-31 13:17 | P.PNNP_ITS ---
Progress Note: A&P Assessment and Plan (1) End stage renal disease: Code(s): N18.6 - End stage renal disease Status: Chronic Assessment and Plan: * HD today and continue T/T/S schedule * follow electrolytes, volume status, and clearance (2) Cardiac arrest: Code(s): I46.9 - Cardiac arrest, cause unspecified Status: Acute Assessment and Plan: * precipitating event/issue?? * Cardiology following * no further arrhythmias since admission * follow telemetry (3) Acute respiratory failure: Code(s): J96.00 - Acute respiratory failure, unspecified whether with hypoxia or hypercapnia Status: Acute Assessment and Plan: * secondary to cardiac arrest * complicated by known history of COPD * on ventilator support (4) Shock: Code(s): R57.9 - Shock, unspecified Status: Acute Assessment and Plan: * initially on pressors but not currently * stable hemodynamics noted * follow cultures (5) Elevated troponin: Code(s): R77.8 - Other specified abnormalities of plasma proteins Status: Acute Assessment and Plan: * more likely related to cardiac arrest rather than acute cardiac event (i.e. [place]) * Cardiology following (6) Seizure: Code(s): R56.9 - Unspecified convulsions Status: Acute Assessment and Plan: * as noted by events since admission * Neurology following * follow-up on EEG results (7) Lactic acidosis: Code(s): E87.2 - Acidosis Status: Acute Assessment and Plan: * due to organ hypoperfusion from cardiac arrest * follow trend Will continue to follow. Subjective Date/time seen: 08/31/20 13:17 No real significant change since I last saw him -- remains intubated and sedated at the time of my visit; remains hemodynamically stable off pressors; no further seizure activity overnight or today; no apparent distress noted at this time; he is due for dialysis later today. Exam Narrative: Exam Narrative: General: chronically ill appearing male intubated/sedated Heart: normal S1 and S2; no rub Lungs: clear to auscultation Abdomen: soft, nontender, nondistended, positive bowel sounds Extremities: no cyanosis or clubbing; no edema Skin: warm and intact Objective Data Vital Signs Vital Signs: Vital Signs Temp Pulse Resp BP Pulse Ox 08/31/20 13:16 67 17 08/31/20 13:00 67 19 02/13/21 12:17 74 93 08/31/20 12:00 36.8 C 71 19 122/72 98 08/31/20 11:25 100 08/31/20 11:20 73 16 08/31/20 10:00 36.9 C 73 25 H 106/76 100 08/31/20 09:54 78 21 H 08/31/20 08:55 80 08/31/20 08:52 80 20 08/31/20 08:45 100 08/31/20 08:00 37.1 C 80 17 113/80 100 08/31/20 06:00 37.4 C 82 20 109/72 100 08/31/20 04:43 80 21 H 08/31/20 04:20 80 21 H 08/31/20 04:00 37.7 C H 78 20 109/66 100 08/31/20 03:06 84 97 08/31/20 03:02 84 22 H 08/31/20 02:00 38.2 C H 82 28 H 115/99 H 100 08/31/20 00:00 38.4 C H 82 25 H 110/65 100 08/30/20 23:15 80 100 08/30/20 22:00 38.4 C H 87 30 H 113/69 100 08/30/20 21:59 81 28 H 08/30/20 20:41 95 08/30/20 20:01 89 24 H 08/30/20 20:00 38.2 C H 88 24 H 1
--- NOTE | 2020-08-31 13:17 | PM.PNNEP ---
Progress Note: A&P Assessment and Plan (1) End stage renal disease: Code(s): N18.6 - End stage renal disease Status: Chronic Assessment and Plan: HD today and continue T/T/S schedule follow electrolytes, volume status, and clearance (2) Cardiac arrest: Code(s): I46.9 - Cardiac arrest, cause unspecified Status: Acute Assessment and Plan: precipitating event/issue?? Cardiology following no further arrhythmias since admission follow telemetry (3) Acute respiratory failure: Code(s): J96.00 - Acute respiratory failure, unspecified whether with hypoxia or hypercapnia Status: Acute Assessment and Plan: secondary to cardiac arrest complicated by known history of COPD on ventilator support (4) Shock: Code(s): R57.9 - Shock, unspecified Status: Acute Assessment and Plan: initially on pressors but not currently stable hemodynamics noted follow cultures (5) Elevated troponin: Code(s): R77.8 - Other specified abnormalities of plasma proteins Status: Acute Assessment and Plan: more likely related to cardiac arrest rather than acute cardiac event (i.e. [place]) Cardiology following (6) Seizure: Code(s): R56.9 - Unspecified convulsions Status: Acute Assessment and Plan: as noted by events since admission Neurology following follow-up on EEG results (7) Lactic acidosis: Code(s): E87.2 - Acidosis Status: Acute Assessment and Plan: due to organ hypoperfusion from cardiac arrest follow trend Will continue to follow. Subjective Date/time seen: 08/31/20 13:17 No real significant change since I last saw him -- remains intubated and sedated at the time of my visit; remains hemodynamically stable off pressors; no further seizure activity overnight or today; no apparent distress noted at this time; he is due for dialysis later today. Exam Narrative: Exam Narrative: General: chronically ill appearing male intubated/sedated Heart: normal S1 and S2; no rub Lungs: clear to auscultation Abdomen: soft, nontender, nondistended, positive bowel sounds Extremities: no cyanosis or clubbing; no edema Skin: warm and intact Objective Data Vital Signs Vital Signs: Vital Signs Temp Pulse Resp BP Pulse Ox 08/31/20 13:16 67 17 08/31/20 13:00 67 19 08/31/20 12:17 74 93 08/31/20 12:00 36.8 C 71 19 122/72 98 08/31/20 11:25 100 08/31/20 11:20 73 16 08/31/20 10:00 36.9 C 73 25 H 106/76 100 08/31/20 09:54 78 21 H 08/31/20 08:55 80 08/31/20 08:52 80 20 08/31/20 08:45 100 08/31/20 08:00 37.1 C 80 17 113/80 100 08/31/20 06:00 37.4 C 82 20 109/72 100 08/31/20 04:43 80 21 H 08/31/20 04:20 80 21 H 08/31/20 04:00 37.7 C H 78 20 109/66 100 08/31/20 03:06 84 97 08/31/20 03:02 84 22 H 08/31/20 02:00 38.2 C H 82 28 H 115/99 H 100 08/31/20 00:00 38.4 C H 82 25 H 110/65 100 08/30/20 23:15 80 100 08/30/20 22:00 38.4 C H 87 30 H 113/69 100 08/30/20 21:59 81 28 H 08/30/20 20:41 95 08/30/20 20:01 89 24 H 08/30/20 20:00 38.2 C H 88 24 H 133/92 H 100 08/30/20 19:51 87 24 H 08/30/20 19:49 87 100 08/30/20 18:04 38.2 C H 08/30/20 18:00 38.2 C H 87 26 H 116/72 100 08/30/20 17:03 38.1 C H 08/30/20 16:29 97 99 08/30/20 16:15 86 21 H 08/30/20 16:00 38.1 C H 84 23 H 127/81 100 08/30/20 15:51 86 21 H 08/30/20 14:43 84 100 08/30/20 14:34 84 22 H 08/30/20 14:11 84 32 H 08/30/20 14:00 38.0 C H 83 24 H 115/76 100 Intake/Output Intake/Output: Intake & Output 02/1008/29/20 08/30/20 08/31/20 23:59 23:59 23:59 23:59 Intake Total 2135 704 1608 866 Output Total 503 1725 30 50 Balance 3342 -2100 157 816 Meds/Results Medications: Active Medications Generic
[2020-08-31] MEDS: SODIUM CHLORIDE 0.9% IV 1,000 ML 100 ML IV CONT (14:00)
[2020-08-31] MEDS: PROPOFOL IV EMULSION 100 ML 13.5 MG IV CONT (14:18)
--- NOTE | 2020-08-31 14:25 | WPDNEUROPN ---
Progress Note: A&P Assessment and Plan (1) Anoxic brain injury: Code(s): G93.1 - Anoxic brain damage, not elsewhere classified Status: Acute Additional Plan eeg abnormal but not flat family will be informed accordingly Review of Systems Review of Systems: All systems reviewed & are unremarkable except as noted in HPI and below Exam Narrative: Exam Narrative: sedated Kube dated and on mechanical ventilation head normocephalic nose throat exam otherwise normal neck without supple with no meningeal signs heart regular lungs with rhonchi abdomen is soft neurologically he has sedated no extraocular movements spontaneously full no nystagmus quadriparetic with hyperreflexia and questionably upgoing plantar response Const: General: no acute distress Objective Data Vital Signs Vital Signs: Vital Signs - 24 hr 08/30/20 14:34 08/30/20 14:43 08/30/20 15:51 Temperature Pulse Rate 84 84 86 Respiratory Rate 22 H 21 H Blood Pressure Pulse Oximetry 100 08/30/20 16:00 08/30/20 16:15 08/30/20 16:29 Temperature 38.1 C H Pulse Rate 84 86 97 Respiratory Rate 23 H 21 H Blood Pressure 127/81 Pulse Oximetry 100 99 08/30/20 17:03 08/30/20 18:00 08/30/20 18:04 Temperature 38.1 C H 38.2 C H 38.2 C H Pulse Rate 87 Respiratory Rate 26 H Blood Pressure 116/72 Pulse Oximetry 100 08/30/20 19:49 08/30/20 19:51 08/30/20 20:00 Temperature 38.2 C H Pulse Rate 87 87 88 Respiratory Rate 24 H 24 H Blood Pressure 133/92 H Pulse Oximetry 100 100 08/30/20 20:01 08/30/20 20:41 08/30/20 21:59 Temperature Pulse Rate 89 95 81 Respiratory Rate 24 H 28 H Blood Pressure Pulse Oximetry 08/30/20 22:00 08/30/20 23:15 08/31/20 00:00 Temperature 38.4 C H 38.4 C H Pulse Rate 87 80 82 Respiratory Rate 30 H 25 H Blood Pressure 113/69 110/65 Pulse Oximetry 100 100 100 08/31/20 02:00 08/31/20 03:02 08/31/20 03:06 Temperature 38.2 C H Pulse Rate 82 84 84 Respiratory Rate 28 H 22 H Blood Pressure 115/99 H Pulse Oximetry 100 97 08/31/20 04:00 08/31/20 04:20 08/31/20 04:43 Temperature 37.7 C H Pulse Rate 78 80 80 Respiratory Rate 20 21 H 21 H Blood Pressure 109/66 Pulse Oximetry 100 08/31/20 06:00 08/31/20 08:00 08/31/20 08:45 Temperature 37.4 C 37.1 C Pulse Rate 82 80 Respiratory Rate 20 17 Blood Pressure 109/72 113/80 Pulse Oximetry 100 100 100 08/31/20 08:52 08/31/20 08:55 08/31/20 09:54 Temperature Pulse Rate 80 80 78 Respiratory Rate 20 21 H Blood Pressure Pulse Oximetry 08/31/20 10:00 08/31/20 11:20 08/31/20 11:25 Temperature 36.9 C Pulse Rate 73 73 Respiratory Rate 25 H 16 Blood Pressure 106/76 Pulse Oximetry 100 100 08/31/20 12:00 08/31/20 12:17 08/31/20 13:00 Temperature 36.8 C Pulse Rate 71 74 67 Respiratory Rate 19 19 Blood Pressure 122/72 Pulse Oximetry 98 93 08/31/20 13:16 08/31/20 14:00 08/31/20 14:18 Temperature 36.7 C Pulse Rate 67 65 68 Respiratory Rate 17 17 18 Blood Pressure 102/57 L Pulse Oximetry 100 Intake/Output Intake/Output: Intake & Output 08/28/20 08/29/20 08/30/20 08/31/20 23:59 23:59 23:59 23:59 Intake Total 2135 704 1608 1071 Output Total 503 1725 30 50 Balance 1632 -1021 1578 1021 Meds/Results Medications: Active Medications Generic Name Dose Route Start Last Admin Trade Name Freq PRN Reason Stop Dose Admin Acetaminophen 650 mg 08/30/20 00:55 08/30/20 17:03 Acetaminophen 325 Mg Tablet PO 650 mg Q4H PRN Administration Mild Pain (1-3) or Fever Albuterol 2.5 mg 08/28/20 14:00 08/31/20 12:59 Albuterol Sulfate Neb 2.5 Mg/0.5 Ml Inh INHALATION 2.5 mg Q6HRT JEANETTE Administration Aspirin 325 mg 08/28/20 08:15 08/31/20 08:55 Aspirin 325 Mg Tablet PO 325 mg DAILY@0800 JEANETTE Administration Carvedilol 12.5 mg 08/29/20 14:20 08/31/20 08:55 Carvedilol 12.5 Mg Tablet PO 12.5 mg Q12HR JEANETTE Administration
[2020-08-31] MEDS: EPOETIN ALFA-EPBX 10,000 UNITS/ML VIAL 10000 UNITS IV PUSH (16:12)
[2020-08-31] MEDS: LORazepam INJ (*CRX) 2 MG/ML VIAL IV PUSH (16:36)
[2020-08-31 18:14] LABS: Glucose Point of Care 84 (65-105)
[2020-08-31] MEDS: PROPOFOL IV EMULSION 100 ML 18 MG IV CONT (22:00)
[2020-09-01] VITALS (16 sets, daily range): BP systolic 59–106; BP diastolic 49–70; PULSE 64–81; RESP 16–29; TEMP 36.6–37.7; O2SAT 87–100
[2020-09-01 01:15] LABS: Glucose Point of Care 81 (65-105)
[2020-09-01] MEDS: ALBUTEROL SULFATE NEB 2.5 MG/0.5 ML INH INHALATION ×2 (02:12→08:18)
[2020-09-01] MEDS: IPRATROPIUM BR 0.02% INH SOLN 0.5 MG/2.5 ML VIAL INHALATION (02:12)
[2020-09-01] MEDS: PROPOFOL IV EMULSION 100 ML 18 MG IV CONT ×2 (03:34→08:20)
[2020-09-01 06:08] LABS: Alveolar/Arterial O2 Gradient 80.8 mmHg; Base Excess ABG 2.7 mEq/l (+/-2.0); Fractional Inspired Oxygen 30 %; HCO3 ABG 26.5 mEq/l (22.0-26.0); Methemoglobin ABG 0.3 %THb (0-1.5); Oxygen Content ABG 11.2 %vol (16.0-22.0); Oxygen Saturation ABG 97.3 % (95.0-100.0); Oxyhemoglobin 94.9 % THb (90.0-100.0); PCO2 ABG 37.3 mmHg (35.0-45.0); PO2 ABG 89.3 mmHg (80.0-100.0); PO2 FiO2 Ratio Arterial Blood 2.98 %; Reduced Hemoglobin 3.8 %THb (0-5.0); Total Hemoglobin 8.3 g/dL (12.0-18.0)
[2020-09-01 06:09] LABS: Arterial Blood Gas PEEP 5 cmH2O; Arterial Blood Gas Vent Mode CMV; Arterial Blood Gas Ventilator rate 15 /MIN; Device VENTILATOR; Modified Allen's Test Pass; Site Drawn RIGHT RADIAL
[2020-09-01 06:10] LABS: Arterial Blood Gas Tidal Volume 350 ml
[2020-09-01 06:28] LABS: Hemoglobin 7.3 g/dL (14.0-18.0); Mean Corpuscular HGB Conc 31.7 g/dl (32-36); Mean Corpuscular Hemoglobin 27.9 pg (26-34); Mean Corpuscular Volume 87.8 fl (80-100); Platelet Count Result 167 k/mm3 (150-375); Red Blood Count 2.62 M/mm3 (4.6-6.20); Red Cell Distribution Width 17.4 % (11.5-14.5); White Blood Count 10.9 K/mm3 (4.5-10.0)
[2020-09-01 06:47] LABS: Alanine Aminotransferase 238 U/L (4-50); Alkaline Phosphatase 71 U/L (38-126); Anion Gap 9 mmol/L (8-16); Aspartate Amino Transferase 142 U/L (17-59); Bilirubin,Total 0.5 mg/dL (0.2-1.3); Blood Urea Nitrogen 35 mg/dL (9-20); Calcium 9.7 mg/dL (8.4-10.2); Carbon Dioxide 31 mmol/L (22-30); Chloride 97 mmol/L (98-107); Estimated CRCL calculation 15 ml/min; Estimated Glomerular Filt Rate 13; Glucose 85 mg/dL (75-110); Magnesium 2.2 mg/dL (1.6-2.3); Potassium 4.3 mmol/L (3.4-5.0); Sodium 137 mmol/L (137-145)
[2020-09-01] MEDS: CENTRAL LINE FLUSH 10 ML IV PUSH (07:08)
[2020-09-01] MEDS: PANTOPRAZOLE SODIUM IV 40 MG VIAL IV PUSH (09:22)
[2020-09-01] MEDS: carvediloL 12.5 MG TABLET PO (09:23)
[2020-09-01] MEDS: CLOPIDOGREL BISULFATE 75 MG TABLET PO (09:23)
[2020-09-01] MEDS: ASPIRIN 325 MG TABLET PO (09:23)
[2020-09-01] MEDS: HEPARIN SODIUM 5,000 UNITS/ML VIAL 5000 UNITS SUB-Q (09:27)
[2020-09-01] MEDS: levETIRAcetam 500MG/NACL 100ML 500 MG/100 ML BAG 400 MG IVPB (09:27)
--- NOTE | 2020-09-01 10:00 | PM.IMPN ---
Progress Note: A&P Assessment and Plan (1) Cardiac arrest: Code(s): I46.9 - Cardiac arrest, cause unspecified Status: Acute Assessment and Plan: secondary to ventricular fibrillation status post cardioversion and amiodarone drip amiodarone was stopped because of bradycardia patient was treated with hypothermia protocol cardiology was consulted no significant arrhythmias since admission (2) Acute respiratory failure: Code(s): J96.00 - Acute respiratory failure, unspecified whether with hypoxia or hypercapnia Status: Acute Assessment and Plan: Acute hypoxemic Respiratory failure secondary to cardiac arrest and probably aspiration pneumonia currently on a vent (3) Shock: Code(s): R57.9 - Shock, unspecified Status: Acute Assessment and Plan: probably cardiogenic and septic shock treated with Levophed wean off pressors continue antibiotics patient echo shows ejection fraction 20% with wall motion anomaly cardiology following (4) Lactic acidosis: Code(s): E87.2 - Acidosis Status: Acute Assessment and Plan: secondary to hypoperfusion and hypoxia continue antibiotics treated with Levophed (5) Non-STEMI (non-ST elevated myocardial infarction): Code(s): I21.4 - Non-ST elevation (NSTEMI) myocardial infarction Status: Acute Assessment and Plan: probably NSTEMI type 2 secondary to demand ischemia cardiology was consulted aspirin Plavix resume beta-keila as bradycardia resolved (6) End-stage renal disease on hemodialysis: Code(s): N18.6 - End stage renal disease; Z99.2 - Dependence on renal dialysis Status: Acute Assessment and Plan: nephrology consulted dialysis per Nephrology (7) Seizure: Code(s): R56.9 - Unspecified convulsions Status: Acute Assessment and Plan: Seizure versus myoclonic jerking Keppra EEG (8) Chronic obstructive pulmonary disease: Code(s): J44.9 - Chronic obstructive pulmonary disease, unspecified Status: Acute Assessment and Plan: Bronchodilators (9) Coronary artery disease: Code(s): I25.10 - Atherosclerotic heart disease of [place] coronary artery without angina pectoris Status: Acute Assessment and Plan: 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 continu aspirin Plavix (10) Anoxic brain injury: Code(s): G93.1 - Anoxic brain damage, not elsewhere classified Status: Acute Assessment and Plan: CT scan showed old CVA probably poor prognosis probably anoxic brain injury EEG was done low voltage but not flat neurology following (11) Hyperkalemia: Code(s): E87.5 - Hyperkalemia Status: Acute Assessment and Plan: patient was hypokalemic on presentation developed hyperkalemia during hospitalization nephrology following Subjective Date/time seen: 09/01/20 10:00 Interval history: 59 years old male with complicated past medical history of coronary artery disease COPD ESRD on dialysis patient was not feeling well the week before admission he has some chest tightness but patient did not seek medical advice after patient had dialysis when he was going back to detention he developed episode of cardiopulmonary arrest required resuscitation patient was found to have vFib and asystole he had multiple episodes of VFib required cardioversion and amiodarone drip cardiology was consulted on admission patient was found to have shock probably cardiogenic shock also chest x-ray shows infiltrate probable aspiration pneumonia patient also have jerky movement concern for seizure versus myoclonic patient was treated with propofol EEG was ordered concern for anoxic brain injury patient was switched to DNR ejection fraction was found to be 20-30% on echo no change from yesterday eeg low voltage but not flat most likely anoxic brain injury neurology following patie
--- NOTE | 2020-09-01 11:17 | WPDINTPN ---
Progress Note: A&P Assessment and Plan (1) Acute respiratory failure: Code(s): J96.00 - Acute respiratory failure, unspecified whether with hypoxia or hypercapnia Status: Acute Assessment and Plan: Acute Respiratory failure secondary to cardiac arrest Continue full mechanical ventilation support to prevent hypoxemia/hypercarbia and end organ damage. ABG and PCXR reviewed. Patient is on 30% FiO2 and a PEEP of 5 on CMV mode of ventilation. Chest x-ray shows opacities on both sides consistent with either aspiration pneumonia or pulmonary edema Low tidal volume ventilation strategy to prevent volutrauma Bronchodilators Continue Zosyn (2) Anoxic brain injury: Code(s): G93.1 - Anoxic brain damage, not elsewhere classified Status: Acute Assessment and Plan: Head CT on presentation showed old CVAs Patient completed TTM protocol at 1:00 a.m. yesterday and is now rewarmed Post holding sedation patient did not wake up. After holding sedation for multiple are patient started having seizures again on the right side and propofol was resumed Head CT repeated this morning IMPRESSION: 1. Diffuse hypoattenuation of the isabel matter, consistent with infarct. 2. 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 Head CT is consistent with anoxic injury. -EEG on 08/30/2020 : Slow activity that is theta and delta activity without any paroxysmal discharge .clinical correlation recommended these abnormalities are suggestive of underlying organic or metabolic encephalopathy -D/w neurology, myoclonic jerks, are minous sign post arrest. per neurology he may have no meaningful recovery. D/w Pt's and daughter (3) Cardiac arrest: Code(s): I46.9 - Cardiac arrest, cause unspecified Status: Acute Assessment and Plan: Patient was in ventricular fibrillation on EMS arrival, status post cardioversion. -remains on amiodarone infusion -echocardiogram 08/28/2020: EF of 25 30% with wall motion abnormalities mild pulmonary hypertension with RVSP of 40 mmHg -cardiology following the patient (4) Shock: Code(s): R57.9 - Shock, unspecified Status: Acute Assessment and Plan: Cardiogenic versus septic shock. He was on epinephrine and norepinephrine. Off all pressors Continue empiric antibiotics. Blood and sputum cultures negative (5) Lactic acidosis: Code(s): E87.2 - Acidosis Status: Acute Assessment and Plan: Resolved Secondary to arrest with hypoperfusion and hypoxia. (6) Non-STEMI (non-ST elevated myocardial infarction): Code(s): I21.4 - Non-ST elevation (NSTEMI) myocardial infarction Status: Acute Assessment and Plan: Elevation in troponin likely secondary to cardiac arrest patient has history of coronary artery disease and CABG No ST elevation on EKG Cardiology consulted Continue aspirin, beta-keila and Plavix Echocardiogram reviewed (7) End-stage renal disease on hemodialysis: Code(s): N18.6 - End stage renal disease; Z99.2 - Dependence on renal dialysis Status: Acute Assessment and Plan: Consulted nephrology when due for dialysis. Dialysis per Nephrology (8) Seizure: Code(s): R56.9 - Unspecified convulsions Status: Acute Assessment and Plan: Seizure versus myoclonic jerking Currently on Propofol and Keppra and Valproic acid EEG is above (9) Chronic obstructive pulmonary disease: Code(s): J44.9 - Chronic obstructive pulmonary disease, unspecified Status: Acute Assessment and Plan: Bronchodilators (10) Coronary artery disease: Code(s): I25.10 - Atherosclerotic heart disease of [place] coronary artery without angina pectoris Status: Acute Assessment and Plan: ECHO Summary 1. Complete two-dimensional, color flow and Doppler transthoracic echocardiogram is performed. 2. The left ventricle is mildly enlarged with moderate concentric
[2020-09-01] MEDS: LORazepam INJ (*CRX) 2 MG/ML VIAL IV PUSH ×5 (12:05→17:19)
[2020-09-01] MEDS: MORPHINE SULFATE INJ (*CRX) 10 MG/ML AMP 5 MG IV PUSH (12:05)
[2020-09-01] MEDS: LORazepam INJ (*CRX) 2 MG/ML VIAL 4 MG (12:56)
[2020-09-01] MEDS: LORazepam INJ (*CRX) 2 MG/ML VIAL 4 MG IV PUSH (13:00)
[2020-09-01] MEDS: LORazepam INJ (*CRX) 40 MG in DEXTROSE 5% IN WATER 20 ML IV CONT (13:47)
[2020-09-01] MEDS: MORPHINE SULFATE (*CRX) 2 MG/ML INJ IV PUSH ×4 (13:49→17:20)
--- NOTE | 2020-09-01 17:46 | P.DN_ITS ---
Discharge Sum: Prov Provider Primary care physician: Sina Eid MD Admitting provider: Fabian Booth MD Consults: 08/27/20 17:44 Consult to Physician Routine Comment: Consulting Provider: Sj Del Rosario Reason for consultation: status post cardiac arrest Has provider been notified: Yes Consult to Physician Routine Comment: Consulting Provider: Ishan Guardado Reason for consultation: post cardiac arrest Has provider been notified: Yes 08/28/20 Consult to Physician Routine Comment: EXCHANGE NOTIFIED OF CONSULT Consulting Provider: Latosha Payton table runner/MD group to consult: Nephrology Reason for consultation: ESRD Has provider been notified: Yes 08/30/20 Consult to Physician Routine Comment: SPOKE WITH DR. ACEVES Consulting Provider: Indra Aceves table runner/MD group to consult: Neurology Reason for consultation: Anoxic Brain Injury Has provider been notified: Yes Discharge Sum: Diag Contributing Factors (1) Cardiac arrest: (2) Acute respiratory failure: (3) Shock: (4) Lactic acidosis: (5) Non-STEMI (non-ST elevated myocardial infarction): (6) End-stage renal disease on hemodialysis: (7) Seizure: (8) Chronic obstructive pulmonary disease: (9) Coronary artery disease: (10) Anoxic brain injury: (11) Hyperkalemia: Discharge Sum: Summary Date and Time Date of admission: 08/27/20 17:43 Additional Data Attending physician: Fabian Booth MD
== END 2020-09-01 17:32 | disposition expired ==
LOC: ANHED 18:07 → ANHICU 20:07
PROVIDERS: Internal Medicine; Internal Medicine Nephrology; Physician Assistant; Admitting Provider Family Medicine; Emergency Provider Emergency Medicine; PCP Family Medicine; Visit Provider Internal Medicine
DX: I49.01 Ventricular fibrillation (principal); I21.A1 Myocardial infarction type 2; N18.6 End stage renal disease; J96.20 Acute and chronic respiratory failure, unspecified whether with hypoxia or hypercapnia; J69.0 Pneumonitis due to inhalation of food and vomit; I12.0 Hypertensive chronic kidney disease with stage 5 chronic kidney disease or end stage renal disease; E87.2 Acidosis; G93.1 Anoxic brain damage, not elsewhere classified; I46.2 Cardiac arrest due to underlying cardiac condition; I47.2 Ventricular tachycardia; E11.22 Type 2 diabetes mellitus with diabetic chronic kidney disease; I25.10 Atherosclerotic heart disease of native coronary artery without angina pectoris; I25.5 Ischemic cardiomyopathy; J44.9 Chronic obstructive pulmonary disease, unspecified; E87.5 Hyperkalemia; R56.9 Unspecified convulsions; G47.33 Obstructive sleep apnea (adult) (pediatric); F31.9 Bipolar disorder, unspecified; E78.5 Hyperlipidemia, unspecified; Z99.2 Dependence on renal dialysis; Z95.1 Presence of aortocoronary bypass graft; Z87.891 Personal history of nicotine dependence; Z95.5 Presence of coronary angioplasty implant and graft; Z86.73 Personal history of transient ischemic attack (TIA), and cerebral infarction without residual deficits; Z66 Do not resuscitate
CPT/HCPCS: 31500; 36415; 36556; 36600; 51702; 70450; 71045; 74018; 80048; 80053; 80307; 81001; 82375; 82550; 82728; 82805; 82948; 83050; 83605; 83735; 83880; 84100; 84443; 84484; 85025; 85027; 85610; 85730; 86140; 87040; 87070; 87086; 87205; 87340; 92950; 93005; 93306; 94002; 94003; 94640; 95816; 96361; 96365; 96366; 96367; 96368; 99291; A9270; C1751; C9113; G0257; J0171; J0282; J0330; J0610; J1644; J1815; J1953; J2060; J2270; J2543; J2704; J3475; J3480; J7030; J7060; Q5106